=== PATIENT | male | born 1950 | race Caucasian/White ===

== ENCOUNTER 2024-04-28 14:37 | Emergency (ER) | payer OTHER, SELFPAY ==
--- NOTE | ~2024-04-28 | CT_ITS ---
EXAMINATION: CT HEAD WITHOUT CONTRAST CLINICAL INFORMATION: Dizziness. Intermittent headaches. COMPARISON: None available. TECHNIQUE: Contiguous axial imaging was performed from the skull base to vertex without intravenous administration of contrast. This CT examination was performed using dose optimization techniques as appropriate, variously including the following: *Automated exposure control. *Adjustment of mA and/or kV according to patient size (this includes techniques or standardized protocols for targeted exams where dose is matched to indication/reason for exam; i.e. extremities or head). *Use of iterative reconstruction technique. DLP: 594 mGy-cm FINDINGS: There is no evidence of acute intracranial hemorrhage or edematous territorial infarction. [place]-white matter differentiation is preserved. Scattered and partially confluent hypoattenuation in the periventricular and deep white matter are consistent with moderate microangiopathy. Proportional prominence of the ventricles and sulcal spaces without evidence of obstructive hydrocephalus. No abnormal mass effect or midline shift. No extra-axial fluid collections. 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 No hyperdense vessel sign. No acute soft tissue or osseous abnormalities. Mild mucosal thickening of the paranasal sinuses. Moderate leftward nasal septal deviation with spurring. The mastoid air cells and middle ear cavities are clear. 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 CT/CT head/brain wo IV con IMPRESSION: 1. No evidence of acute intracranial hemorrhage or edematous territorial infarction. 2. 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 Electronically signed by: Dhaval Dobbs DO 04/28/2024 05:59 PM EST
--- OUTSIDE RECORDS SUMMARY | 2024-04-28 14:47 | XMS_ITS | Encounter Summary ---
Author Name [facility] [place] Organization [facility] Address [address] [place] [address] Care Team Providers Care Smocking Machine Operator Name Role Phone MARYELLEN GONZALEZ Primary Care Provider Unavailabl e Insurance Providers: All historical and current Section Date Range: From patient's date of to the date document was created. This section includes the names of all active insurance providers for the patient. Insurance Provider Type of Coverage Plan Name Start of Policy Coverage End of Policy Coverage Group Number Member ID Insurance Provider's Telephone Number Policy Gaytan's Name Patient's Relationship to Policy Gaytan IRINEO [facility] Mar 11, 2015 [id number] [phone] JEZ GARCIA PATIENT MEDICARE (WNR) MEDICARE (M) PART A Mar 11, 2015 PART A [id number] JEZ GARCIA PATIENT MEDICARE (WNR) MEDICARE (M) PART B Mar 11, 2015 PART B [id number] JEZ GARCIA PATIENT MEDICARE (WNR) MEDICARE (M) PART A Mar 11, 2015 PART A [id number] [phone] JEZ GARCIA PATIENT MEDICARE (WNR) MEDICARE (M) PART B Mar 11, 2015 PART B [id number] JEZ GARCIA PATIENT Selected Encounter This section includes the information on record at [place] for the Encounter. Date/Time Encounter Type Encounter Description Reason Pro vider Source Aug 20, 2023 03:52 PM Outpatient Encounter PRIMARY CARE/MEDICINE IHE Encounter Template Text not used by [place] Plan of Treatment: Future Appointments (+ 6 months) and Future Tests (+/- 45 days) The Plan of Treatment section includes future care activities for the patient from all [place] treatmentfacilities. This section includes future appointments and future orders which are active, pending or scheduled. Future Appointments This section includes appointments that were scheduled to occur 6 months from the date of the Encounter, up to a maximum of 20 appointments. The data comes from all [place] treatment facilities. Appointment Date/Time Appointment Type Appointme nt Facility Name Aug 28, 2023 01:00 PM AMBULATORY - [facility]ICINE [facility] Lab Results: +/- 30 days of the encounter This section includes the Chemistry and Hematology Lab Results on record with [place] for the patient. Radiology Reports and Pathology Reports are provided separately, in subsequent sections. Lab Results This section contains the Chemistry/Hematology Results that were resulted 30 days before or 30 daysafter the date of the Encounter. Date/Time Source Result Type Result - Unit Interpretation Reference Range Comment Aug 21, 2023 11:18 AM [facility] LIPID PANEL FASTING Specimen Type: SERUM No comment entered. Ordering Provider: KAREN CARD Report Released Date/Time: Aug 10, 2023 01:40 PM Reporting Lab: [address] [address] Performing Lab: [address] [address] CHOLESTEROL 154 mg/dL TRIGLYCERIDE 239 mg/dL H 0-150 LDL calculated 63 mg/dL 0-129 CHOL/HDL 3.6 HDL CHOLESTEROL 43 mg/dL 40-60 Aug 21, 2023 11:18 AM [facility] BASIC METABOLIC PANEL (fasting) Specime n Type: SERUM No comment entered. Ordering Provider: KAREN CARD Report Released Date/Time: Aug 10, 2023 01:40 PM Reporting Lab: [address] [address] Performing Lab: [address] [address] UREA NITROGEN 18 mg/dL 7-25 GLUCOSE 117 mg/dL H 65-100 SODIUM 138 mmol/L 135-145 POTASSIUM 4.3 mmol/L 3.5-5.0 CHLORIDE 103 mmol/L 100-110 CO2 24 meq/L 20-30 CREATININE, Serum 1.04 mg/dL 0.50-1.40 eGFR(CKD-EPI 2020) 75 mL/min >60 Aug 21, 2023 11:18 AM [facility] LIVER FUNCTION Specimen Type: SERUM No comment entered. Ordering Provider: KAREN CARD Report Released Date/Time: Aug 10, 2023 01:40 PM Reporting Lab: [address] [address] Performing Lab: [address] [address] PROTEIN,TOTAL 7.1 g/dL 6.0-8.3 ALBUMIN 4.0 g/dL 3.5-5.0 ALKALINE PHOSPHATASE 49 U/L 40-150 AST 23 U/L 5-34 ALT 24 U/L BILIRUBIN, TOTAL 1.3 mg/dL H 0.2-1.2 BILIRUBIN, DIRECT 0.4 mg/dL 0-0.5 Aug 21, 2023 11:18 AM [facility] HEMOGLOBIN A1C PANEL Specimen Type: BLOOD Comment: Values obtained from A1C measurements can vary. For atypical A1C assays, a reported value of 7.0 could actually be between 6.72 and 7.28 if measured by a reference method. A reported value of 9.0 could actually be between 8.73 and 9.27. Ref: http://www.ngs p.org/CAPdata. asp Ordering Provider: KAREN CARD Report Released Date/Time: Aug 10, 2023 01:40 PM Reporting Lab: [address] [address] Performing Lab: [address] [address] HEMOGLOBIN A1C 6.4 H 4.0-5.6 Aug 21, 2023 11:18 AM [facility] TSH Specimen Type: SERUM No comment entered. Ordering Provider: KAREN CARD Report Released Date/Time: Aug 10, 2023 01:40 PM Reporting Lab: [address] [place] [address] Performing Lab: [address] [address] TSH 1.06 u[IU]/mL 0.35-5.00 Aug 21, 2023 11:18 AM [facility] MICROALBUMIN CREATININE RATIO PANEL Spe cimen Type: URINE No comment entered. Ordering Provider: KAREN CARD Report Released Date/Time: Aug 10, 2023 01:40 PM Reporting Lab: [address] [address] Performing Lab: [address] [address] MICROALBUMIN/C REATININE RATIO 91.7 mg/g H 0-29.9 MICROALBUMIN,Q UANTITATIVE 4.3 mg/dL RR UNAVAIL CREATININE URINE 46.87 mg/dL Aug 21, 2023 11:18 AM [facility] CBC AND DIFF (AUTO) Specimen Type: BLOOD No comment entered. Ordering Provider: KAREN CARD Report Released Date/Time: Aug 10, 2023 01:40 PM Reporting Lab: [address] [address] Performing Lab: [address] [address] WBC 6.37 10*3/uL 4.50-11.00 RBC 4.93 10*6/uL 4.23-5.66 HGB 14.9 g/dL 12.8-17 HCT 44.4 39.2-50.4 MCV 90.1 fL 82-99 MCHC 33.6 g/dL 30.8-35.1 PLT 171 10*3/uL 140-360 RDW-CV 13.2 12.0-16.0 [place], Abs 0.52 10*3/uL 0.30-1.10 MCH 30.2 pg 26.2-32.6 Neut % 48.1 43.7-75.8 Lymph % 19.9 14.0-42.3 [place] % 8.2 5.1-13.7 Eos % 22.6 H 0.4-6.8 Baso % 0.9 0.1-2.0 Neut, Abs 3.06 10*3/uL 2.20-7.60 Lymph, Abs 1.27 10*3/uL 1.00-3.20 Eos, Abs 1.44 10*3/uL H 0.03-0.44 Baso, Abs 0.06 10*3/uL 0.01-0.13 Immature Gran % 0.3 0.0-0.7 Immature Gran, Abs 0.02 10*3/uL 0.00-0.06 Social History: Smoking Status (Most current) and Tobacco Use (All prior to encounter date) This section includes the most current, and the historical, smoking and tobacco- related health factors from the [place] facility where the Encounter took place. Current Smoking Status This section includes the most current smoking, or tobacco-related health factor, from the [place] facility where the Encounter took place. Date/Time Current Smoking Status Comment Facil ityulisa Oct 30, 2020 10:49 AM [place]-TOBACCO NEVER USED [place] [facility] Encounter Notes: All associated encounter notes This section contains the clinical notes associated to the Encounter. Date/Time Encounter Note(s) Provider Source Aug 20, 2023 03:52 PM ADMINISTRATIVE NOT E: LOCAL TITLE: ADMINISTRATIVE NOTE STANDARD TITLE: ADMINISTRATIVE NOTE DATE OF NOTE: AUG 20, 2023@15:52 ENTRY DATE: AUG 20, 2023@15:52:49 AUTHOR: SCOTT ZABALA COSIGNER: URGENCY: STATUS: COMPLETED THIS PREPRESS TECHNICIAN HAD CALLED TO REMIND OF F2F ANNUAL APPT. WITH CWM/SO/PACT EIGHT PROVIDER ON 08/28/2023 AT 13:00, ALSO REMINDED TO COMPLETE FASTING LABS. NO ANSWER, LEFT MESSAGE FOR . /ct/ KENNETH ZABALA ADVANCED VIDEO CONFERENCE SPECIALIST Signed: 08/20/2023 15:54 KENNETH ZABALA [facility]
--- OUTSIDE RECORDS SUMMARY | 2024-04-28 14:47 | XMS_ITS | Encounter Summary ---
Author Name [facility] [place] Organization [facility] of [facility] [place]) Address [address] [place] [address] Care Team Providers Care Recreational Specialist Name Role Phone MARYELLEN GONZALEZ Primary Care [...] Name Patient's Relationship to Policy Gaytan [facility]INEO [facility] Mar 11, 2015 [id number] JEZ GARCIA PATIENT MEDICARE (WNR) MEDICARE (M) PART A Mar 11, 2015 PART A [id number] [phone] JEZ GARCIA PATIENT MEDICARE (WNR) MEDICARE (M) PART B Mar 11, 2015 PART B [id number] JEZ GARCIA PATIENT MEDICARE (WNR) MEDICARE (M) PART A Mar 11, 2015 PART A [id number] JEZ GARCIA PATIENT MEDICARE (WNR) MEDICARE (M) PART B Mar 11, 2015 PART B [id number] [phone] JEZ GARCIA PATIENT Selected Encounter This section includes the information on record at [place] for the Encounter. Date/Time Encounter Type Encounter Description Reason Pro vider Source Nov 20, 2023 07:06 AM Outpatient Encounter PRIMARY CARE/MEDICINE IHE Encounter Template Text not used by [place] Plan of Treatment: Future Appointments (+ 6 months) and Future Tests (+/- 45 days) The Plan of Treatment section includes future care activities for the patient from all [place] treatmentfacilities. This section includes future appointments and future orders which are active, pending or scheduled. Future Appointments This section includes appointments that were scheduled to occur 6 months from the date of the Encounter, up to a maximum of 20 appointments. The data comes from all [place] treatment facilities. Appointment Date/Time Appointment Type Appointme nt Facility Name Feb 24, 2024 09:30 AM AMBULATORY - MEDICINE [facility] Social History: Smoking Status (Most current) and Tobacco Use (All prior to encounter date) This section includes the most current, and the historical, smoking and tobacco- related health factors from the [place] facility where the Encounter took place. Current Smoking Status This section includes the most current smoking, or tobacco-related health factor, from the [place] facility where the Encounter took place. Date/Time Current Smoking Status Comment Facil ity Oct 30, 2020 10:49 AM [place]-TOBACCO NEVER USED [place] [facility] [place] [facility] Encounter Notes: All associated encounter notes This section contains the clinical notes associated to the Encounter. Date/Time Encounter Note(s) Provider Source Nov 20, 2023 07:06 AM PRIMARY CARE INFOGRAPHIQS MESSAGING: LOCAL TITLE: PRIMARY CARE SECURE MESSAGING STANDARD TITLE: PRIMARY CARE SECURE MESSAGING DATE OF NOTE: NOV 20, 2023@07:06 ENTRY DATE: NOV 20, 2023@08:07 AUTHOR: SCOTT ZABALA COSIGNER: URGENCY: STATUS: COMPLETED ------Original Message -------- Sent: 11/19/2023 07:56 PM ET From: RC GARCIA To: Luis Daniel CARD,_PRIMARYCARE_[facility] Subject: Medication:Omeprazole I have eleven days of omeprazole 20mg left. There are no additional refills left. Please let me know if you want me to stop taking the medication or send a request for a refill. Thank you /ct/ KENNETH ZABALA ADVANCED GRANTS AND CONTRACTS ASSISTANT Signed: 11/20/2023 08:07 Receipt Acknowledged By: 11/20/2023 15:41 /es/ JAZMYNE GERARDN RN- REGISTERED NURSE 11/24/2023 16:31 /ct/ KAREN CARD MD PRIMARY CARE PHYSICIAN SCOTT ZABALA [facility]
--- OUTSIDE RECORDS SUMMARY | 2024-04-28 14:47 | XMS_ITS | Encounter Summary ---
Author Name [facility] [place] Organization [facility] [place] Address [address] [place] [address] Care Team Providers Care Training Professional Name Role Phone MARYELLEN GONZALEZ Primary Care [...] Name Patient's Relationship to Policy Gaytan [facility]O [facility] Mar 11, 2015 [id number] [phone] JEZ GARCIA PATIENT MEDICARE (WNR) MEDICARE (M) PART A Mar 11, 2015 PART A [id number] [phone] JEZ GARCIA PATIENT MEDICARE (WNR) MEDICARE (M) PART B Mar 11, 2015 PART B [id number] JEZ GARCIA PATIENT MEDICARE (WNR) MEDICARE (M) PART A Mar 11, 2015 PART A [id number] [id number] [phone] JEZ GARCIA PATIENT MEDICARE (WNR) MEDICARE (M) PART B Mar 11, 2015 PART B [id number] [phone] JEZ GARCIA PATIENT Selected Encounter This section includes the information on record at [place] for the Encounter. Date/Time Encounter Type Encounter Description Reason Pro vider Source Feb 08, 2024 03:14 PM Outpatient Encounter OPTOMETRY IHE Encounter Template Text not used by [facility] Plan of Treatment: Future Appointments (+ 6 months) and Future Tests (+/- 45 days) The Plan of Treatment section includes future care activities for the patient from all [place] treatmentfacilities. This section includes future appointments and future orders which are active, pending or scheduled. Future Appointments This section includes appointments that were scheduled to occur 6 months from the date of the Encounter, up to a maximum of 20 appointments. The data comes from all [place] treatment facilities. Appointment Date/Time Appointment Type Appointme nt Facility Name Feb 24, 2024 09:30 AM AMBULATORY - MEDICINE [facility] Lab Results: +/- 30 days of the encounter This section includes the Chemistry and Hematology Lab Results on record with [place] for the patient. Radiology Reports and Pathology Reports are provided separately, in subsequent sections. Lab Results This section contains the Chemistry/Hematology Results that were resulted 30 days before or 30 daysafter the date of the Encounter. Date/Time Source Result Type Result - Unit Interpretation Reference Range Comment Feb 16, 2024 10:52 AM [facility] LIPID PANEL FASTING Specimen Type: SERUM No comment entered. Ordering Provider: KAREN CARD Report Released Date/Time: Feb 12, 2024 04:13 PM Reporting Lab: [address] [address] Performing Lab: [address] [address] CHOLESTEROL 183 mg/dL TRIGLYCERIDE 269 mg/dL H 0-150 LDL calculated 83 mg/dL 0-129 CHOL/HDL 4.0 HDL CHOLESTEROL 46 mg/dL 40-60 Feb 16, 2024 10:52 AM [facility] BASIC METABOLIC PANEL (fasting) Specime n Type: SERUM No comment entered. Ordering Provider: KAREN CARD Report Released Date/Time: Feb 12, 2024 04:13 PM Reporting Lab: [address] [address] Performing Lab: [address] [address] UREA NITROGEN 22 mg/dL 7-25 GLUCOSE 110 mg/dL H 65-100 SODIUM 135 mmol/L 135-145 POTASSIUM 4.5 mmol/L 3.5-5.0 CHLORIDE 102 mmol/L 100-110 CO2 24 meq/L 20-30 CREATININE, Serum 1.06 mg/dL 0.50-1.40 eGFR(CKD-EPI 2020) 74 mL/min >60 Feb 16, 2024 10:52 AM [facility] LIVER FUNCTION Specimen Type: SERUM No comment entered. Ordering Provider: KAREN CARD Report Released Date/Time: Feb 12, 2024 04:13 PM Reporting Lab: [facility] [address] [facility] [address] Performing Lab: [address] [address] PROTEIN,TOTAL 7.1 g/dL 6.0-8.3 ALBUMIN 4.0 g/dL 3.5-5.0 ALKALINE PHOSPHATASE 39 U/L L 40-150 AST 24 U/L 5-34 ALT 23 U/L BILIRUBIN, TOTAL 1.4 mg/dL H 0.2-1.2 BILIRUBIN, DIRECT 0.4 mg/dL 0-0.5 Feb 16, 2024 10:52 AM [facility] HEMOGLOBIN A1C PANEL Specimen Type: BLOOD Comment: Values obtained from A1C measurements can vary. For atypical A1C assays, a reported value of 7.0 could actually be between 6.72 and 7.28 if measured by a reference method. A reported value of 9.0 could actually be between 8.73 and 9.27. Ref: http://www.ngs p.org/CAPdata. asp Ordering Provider: KAREN CARD Report Released Date/Time: Feb 12, 2024 04:13 PM Reporting Lab: [facility] [address] [facility] [address] Performing Lab: [address] [address] HEMOGLOBIN A1C 6.2 H 4.0-5.6 Feb 16, 2024 10:52 AM [facility] TSH Specimen Type: SERUM No comment entered. Ordering Provider: KAREN CARD Report Released Date/Time: Feb 12, 2024 04:13 PM Reporting Lab: [address] [address] [facility] [address] [address] TSH 1.05 u[IU]/mL 0.35-5.00 Feb 16, 2024 10:52 AM [facility] MICROALBUMIN CREATININE RATIO PANEL Spe cimen Type: URINE No comment entered. Ordering Provider: KAREN CARD Report Released Date/Time: Feb 12, 2024 04:13 PM Reporting [facility] [address] [address] Performing Lab: [address] [address] MICROALBUMIN/C REATININE RATIO 49.2 mg/g H 0-29.9 MICROALBUMIN,Q UANTITATIVE 2.7 mg/dL RR UNAVAIL CREATININE URINE 54.91 mg/dL Feb 16, 2024 10:52 AM [facility] CBC AND DIFF (AUTO) Specimen Type: BLOOD No comment entered. Ordering Provider: KAREN CARD Report Released Date/Time: Feb 12, 2024 04:13 PM Reporting Lab: [address] [address] Performing Lab: [address] [address] WBC 4.58 10*3/uL 4.50-11.00 RBC 4.78 10*6/uL 4.23-5.66 HGB 14.6 g/dL 12.8-17 HCT 42.6 39.2-50.4 MCV 89.1 fL 82-99 MCHC 34.3 g/dL 30.8-35.1 PLT 159 10*3/uL 140-360 RDW-CV 13.1 12.0-16.0 MONO, ABS 0.53 10*3/uL 0.30-1.10 MCH 30.5 pg 26.2-32.6 NEUT % 54.6 43.7-75.8 LYMPH % 23.8 14.0-42.3 MONO % 11.6 5.1-13.7 EOS % 8.7 H 0.4-6.8 BASO % 1.1 0.1-2.0 NEUT, ABS 2.50 10*3/uL 2.20-7.60 LYMPH, ABS 1.09 10*3/uL 1.00-3.20 EOS, ABS 0.40 10*3/uL 0.03-0.44 BASO, ABS 0.05 10*3/uL 0.01-0.13 IMMATURE GRAN % 0.2 0.0-0.7 IMMATURE GRAN, ABS 0.01 10*3/uL 0.00-0.06 NRBC % 0.0 0.0-0.0 NRBC, ABS 0.00 10*3/uL 0.00-0.00 Social History: Smoking Status (Most current) and Tobacco Use (All prior to encounter date) This section includes the most current, and the historical, smoking and tobacco- related health factors from the [place] facility where the Encounter took place. Current Smoking Status This section includes the most current smoking, or tobacco-related health factor, from the [place] facility where the Encounter took place. Date/Time Current Smoking Status Comment Facil ayesha Oct 30, 2020 10:49 AM [place]-TOBACCO NEVER USED [facility] Encounter Notes: All associated encounter notes This section contains the clinical notes associated to the Encounter. Date/Time Encounter Note(s) Provider Source Feb 08, 2024 03:15 PM ADMINISTRATIVE NOTE: LOCAL TITLE: ADMINISTRATIVE RECALL NOTE STANDARD TITLE: ADMINISTRATIVE NOTE DATE OF NOTE: FEB 08, 2024@15:15 ENTRY DATE: FEB 08, 2024@15:15:07 AUTHOR: OVIDIO BRITT SA COSIGNER: URGENCY: STATUS: COMPLETED RTC orders: Unable to contact patient: Attempts to contact: 1st attempt: Left voicemail 2nd attempt: Letter mailed 3rd attempt: 4th attempt: 1ST CONTACT ATTEMPT: Called, LM on to reschedule appointment. Mailed letter. Patients appointment with Optometry on 02/09/2024 at 2:30pm, needs to be rescheduled with a PID of [id number]/2024. [facility] will make a second contact attempt on 02/23/2024. [phone] Ext: [phone] /ct/ OVIDIO BRITT Signed: 02/08/2024 15:16 OVIDIO BRITT [facility]
--- OUTSIDE RECORDS SUMMARY | 2024-04-28 14:47 | XMS_ITS | Encounter Summary ---
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 Name Role Phone CARLOS MARYELLEN Primary Care Provider Unavailabl e Insurance Providers: [...] Name Patient's Relationship to Policy Gaytan IRINEO [facility] MEDICARE SUPPLEMEN PRABHJOT Mar 11, 2015 [id number] [phone] JEZ GARCIA PATIENT MEDICARE (WNR) MEDICARE (M) PART A Mar 11, 2015 PART A [id number] [phone] JEZ GARCIA PATIENT MEDICARE (WNR) MEDICARE (M) PART B Mar 11, 2015 PART B [id number] [phone] JEZ GARCIA PATIENT MEDICARE (WNR) MEDICARE (M) PART A Mar 11, 2015 PART A [id number] JEZ GARCIA PATIENT MEDICARE (WNR) MEDICARE (M) PART B Mar 11, 2015 PART B [id number] JEZ GARCIA PATIENT Selected Encounter This section includes the information on record at [place] for the Encounter. Date/Time Encounter Type Encounter Description Reason Provider Source Aug 28, 2023 01:00 PM OFFICE O/P EST MOD 30 MIN PRIMARY CARE/MEDICINE ICD-10-CM E78.5 Hyperlipidemia, unspecified JESSY CARDSUKI Neumann Alo Encounter Template Text not used by [place] Assessments - Encounter Diagnoses This section includes the primary and secondary diagnoses documented for the Encounter. Date/Time Primary/Secondary Diagnosis Diagnosis Name Provider Source Aug 28, 2023 01:37 PM PRIMARY Hyperlipidemia, unspecified ELYSEKAREN PARSONS [facility] Aug 28, 2023 01:37 PM SECONDARY Essential (primary) hypertension KAREN CARD [facility] Aug 28, 2023 01:37 PM SECONDARY Migraine, unsp, not intractable, without status migrainosus KAREN CARD [place] Aug 28, 2023 01:37 PM SECONDARY Type 2 diabetes mellitus without complications KAREN CARD [place] Plan of Treatment: Future Appointments (+ 6 months) and Future Tests (+/- 45 days) The Plan of Treatment section includes future care activities for the patient from all [place] [facility]. This section includes future appointments and future orders which are active, pending or scheduled. Future Appointments This section includes appointments that were scheduled to occur 6 months from the date of the Encounter, up to a maximum of 20 appointments. The data comes from all [place] treatment facilities. Appointment Date/Time Appointment Type Appointme nt Facility Name Feb 24, 2024 09:30 AM AMBULATORY - MEDICINE [facility] Lab Results: +/- 30 days of the encounter This section includes the Chemistry and Hematology Lab Results on record with [place] for the patient. Radiology Reports and Pathology Reports are provided separately, in subsequent sections. Lab Results This section contains the Chemistry/Hematology Results that were resulted 30 days before or 30 daysafter the date of the Encounter. Date/Time Source Result Type Result - Unit Interpretation Reference Range Comment Aug 21, 2023 11:18 AM [facility] LIPID PANEL FASTING Specimen Type: SERUM No comment entered. Ordering Provider: KAREN CARD Report Released Date/Time: Aug 10, 2023 01:40 PM Reporting Lab: [address] [address] Performing Lab: [address] [address] CHOLESTEROL 154 mg/dL TRIGLYCERIDE 239 mg/dL H 0-150 LDL calculated 63 mg/dL 0-129 CHOL/HDL 3.6 HDL CHOLESTEROL 43 mg/dL 40-60 Aug 21, 2023 11:18 AM [facility] BASIC METABOLIC PANEL (fasting) Specime n Type: SERUM No comment entered. Ordering Provider: KAREN CARD Report Released Date/Time: Aug 10, 2023 01:40 PM Reporting Lab: [address] [address] Performing Lab: [address] [address] UREA NITROGEN 18 mg/dL 7-25 GLUCOSE 117 mg/dL H 65-100 SODIUM 138 mmol/L 135-145 POTASSIUM 4.3 mmol/L 3.5-5.0 CHLORIDE 103 mmol/L 100-110 CO2 24 meq/L 20-30 CREATININE, Serum 1.04 mg/dL 0.50-1.40 eGFR(CKD-EPI 2020) 75 mL/min >60 Aug 21, 2023 11:18 AM [facility] LIVER FUNCTION Specimen Type: SERUM No comment entered. Ordering Provider: KAREN CARD Report Released Date/Time: Aug 10, 2023 01:40 PM Reporting Lab: [address] [address] Performing Lab: [address] [address] PROTEIN,TOTAL 7.1 g/dL 6.0-8.3 ALBUMIN 4.0 g/dL 3.5-5.0 ALKALINE PHOSPHATASE 49 U/L 40-150 AST 23 U/L 5-34 ALT 24 U/L BILIRUBIN, TOTAL 1.3 mg/dL H 0.2-1.2 BILIRUBIN, DIRECT 0.4 mg/dL 0-0.5 Aug 21, 2023 11:18 AM [facility] HEMOGLOBIN A1C PANEL Specimen Type: BLOOD Comment: [...] Aug 10, 2023 01:40 PM Reporting [facility]: [facility] [address] [address] Performing Lab: [facility] [address] [address] HEMOGLOBIN A1C 6.4 H 4.0-5.6 Aug 21, 2023 11:18 AM [facility] TSH Specimen Type: SERUM No comment entered. Ordering Provider: KAREN CARD Report Released Date/Time: Aug 10, 2023 01:40 PM Reporting Lab: [facility] [address] [address] Performing Lab: [facility] [address] [address] TSH 1.06 u[IU]/mL 0.35-5.00 Aug 21, 2023 11:18 AM [facility] MICROALBUMIN CREATININE RATIO PANEL Spe cimen Type: URINE No comment entered. Ordering Provider: KAREN CARD Report Released Date/Time: Aug 10, 2023 01:40 PM Reporting Lab: [facility] [address] [address] Performing Lab: [facility] [address] [address] MICROALBUMIN/C REATININE RATIO 91.7 mg/g H 0-29.9 MICROALBUMIN,Q UANTITATIVE 4.3 mg/dL RR UNAVAIL CREATININE URINE 46.87 mg/dL Aug 21, 2023 11:18 AM [facility] CBC AND DIFF (AUTO) Specimen Type: BLOOD No comment entered. Ordering Provider: KAREN CARD Report Released Date/Time: Aug 10, 2023 01:40 PM Reporting Lab: [facility] [address] [address] Performing Lab: [facility] [address] [address] WBC 6.37 10*3/uL 4.50-11.00 RBC 4.93 10*6/uL 4.23-5.66 HGB 14.9 g/dL 12.8-17 HCT 44.4 39.2-50.4 MCV 90.1 fL 82-99 MCHC 33.6 g/dL 30.8-35.1 PLT 171 10*3/uL 140-360 RDW-CV 13.2 12.0-16.0 Stark, Abs 0.52 10*3/uL 0.30-1.10 MCH 30.2 pg 26.2-32.6 Neut % 48.1 43.7-75.8 Lymph % 19.9 14.0-42.3 Stark % 8.2 5.1-13.7 Eos % 22.6 H 0.4-6.8 Baso % 0.9 0.1-2.0 Neut, Abs 3.06 10*3/uL 2.20-7.60 Lymph, Abs 1.27 10*3/uL 1.00-3.20 Eos, Abs 1.44 10*3/uL H 0.03-0.44 Baso, Abs 0.06 10*3/uL 0.01-0.13 Immature Gran % 0.3 0.0-0.7 Immature Gran, Abs 0.02 10*3/uL 0.00-0.06 Vital Signs: All taken on the encounter date This section contains inpatient and outpatient Vital Signs collected on the date of the Encounter. Date/Time Temperature Pulse Blood Pressure Respiratory Rate SP02 Pain Height Weight Body Mass Index Source Aug 28, 2023 01:34 PM 137/85 [place] Aug 28, 2023 01:09 PM 61 150/87 97 [facility] Social History: Smoking Status (Most current) and Tobacco Use (All prior to encounter date) This section includes the most current, and the historical, smoking and tobacco- related health factors from the [place] facility where the Encounter took place. Current Smoking Status This section includes the most current smoking, or tobacco-related health factor, from the [place] facility where the Encounter took place. Date/Time Current Smoking Status Comment Jose J ity Feb 25, 2023 09:00 AM [place]-TOBACCO NEVER USED [facility] Tobacco Use History This section includes a history of the smoking, or tobacco-related health factors, that were collected on or before the date of the Encounter. The data comes from the [place] facility where the Encounter took place. Date/Time Smoking Status/Tobacco Use Comment F acnakul Feb 25, 2022 10:00 AM [facility]-TOBACCO NEVER USED [facility] Jan 28, 2018 12:04 PM VA-TOBACCO NEVER USED [facility] September 14, 2017 09:02 AM LIFETIME NON-TOBACCO USER [facility] May 07, 2016 09:00 AM LIFETIME NON-TOBACCO USER [facility] Apr 04, 2015 02:05 PM QUIT TOBACCO USE > 7 YEARS AGO [facility] Jan 03, 2011 09:03 AM LIFETIME NON-TOBACCO USER [facility] Encounter Notes: All associated encounter notes This section contains the clinical notes associated to the Encounter. Date/Time Encounter Note(s) Provider Source Aug 28, 2023 01:16 PM PHYSICIAN NOTE: LOCAL TITLE: MD NOTE STANDARD TITLE: PHYSICIAN NOTE DATE OF NOTE: AUG 28, 2023@13:16 ENTRY DATE: AUG 28, 2023@13:16:12 AUTHOR: KAREN CARD COSIGNER: URGENCY: STATUS: COMPLETED HISTORY OF PRESENT ILLNESS: RC Sheryl GARCIA, is a 73 yo MALE [place], who presents at the [facility] for follow up visit for chronic medical conditions. labs- recenthly done and results were d/w Twist and Shout today Active problems - Computerized Problem List is the source for the followin-essential hypertension 2-hyperlipidemia 3-diabetes mellitus type 2 4-migraines The following VA and Non-VA meds were reconciled with patient: Active Outpatient Medications (including Supplies): Issue Date Status Last Fill Active Outpatient Medications Refills Expiration ========= 1) AMLODIPINE BESYLATE 2.5MG TAB Qty: 90 ACTIVE Issu:03-30-23 for 90 days Sig: TAKE ONE TABLET BY Refills: 2 Last:06-26-23 MOUTH ONCE DAILY FOR BLOOD Expr:03-30-24 PRESSURE/HEART, DO NOT TAKE WITH GRAPEFRUIT JUICE 2) LOSARTAN 100MG TAB Qty: 90 for 90 days ACTIVE Issu:04-02-23 Sig: TAKE ONE TABLET BY MOUTH ONCE Refills: 2 Last:06-26-23 DAILY FOR BLOOD PRESSURE/HEART - THIS Expr:04-02-24 REPLACES LISINOPRIL 3) OMEPRAZOLE 20MG EC CAP Qty: 90 for 90 ACTIVE Issu:10-09-22 days Sig: TAKE ONE CAPSULE BY MOUTH Refills: 0 Last:07-09-23 DAILY Expr:10-10-23 4) ROSUVASTATIN CA 40MG TAB Qty: 45 for 90 ACTIVE Issu:03-04-23 days Sig: TAKE ONE-HALF TABLET BY Refills: 2 Last:06-11-23 MOUTH AT BEDTIME FOR CHOLESTEROL - Expr:03-04-24 THIS REPLACES ATORVASTATIN Start Date Active Non-VA Medications Refills Expiration ========= 1) Non-VA CHOLECALCIF 25MCG (D3-1,000UNIT) ACTIVE TAB SiMCG BY MOUTH ONCE DAILY 5 Total Medications ALLERGIES: ========= Patient has answered NKA LAB HISTORY: Glucose levels 117 with hemoglobin A1c 6.4 LFTs, TSH, CBC normal Triglycerides 239 Microalbumin 91 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 - [employer] 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 Apr COMBAT SERVICE INDICATED: No REVIEW OF SYSTEMS: No fever, chills, fatigue No chest pain shortness of breath or palpitations No cough or wheezing No abdominal pain nausea or vomiting No dysuria No joints pain No dizziness; sometimes headaches; PHYSICAL EXAMINATION: WD/WN seems to be in nonacute distress at the moment of examination S1-S2 positive, RRR PARISH, CTA bilateral Abdomen soft nontender to palpation No edema lower extremities AAO x3; ambulates without help ASSESSMENT/PLAN: 1-essential hypertension- mild elevated BP in office; blood work is 137/85 -Advised to keep low salt and caffeine intake and exercise at least 150 minutes moderate activity weekly He admits of not exercising over the winter He states he watches his diet 2-hyperlipidemia -with hypertriglyceridemia Advised to continue statins and fish oil 1000 mg twice a day I advised to decrease carbohydrates in diet and exercise as tolerated 3-diabetes mellitus type 2 continue metformin Advised to watch his diet for carbohydrates and increase exercising to 150 minutes moderate activity weekly He states does not monitor his glucose level at home 4-migraines- continue propranolol daily and sumatriptan as needed FOLLOW UP: ========= RTC -6 month follow up- for htn, hlp, dm, migraines Today's documentation was made using voice recognition software. This note may contain spelling/grammatical errors secondary to this software. Every effort is made to correct errors, but if mistakes are found they need to be taken in context. UPCOMING APPOINTMENTS: 02/09/2024 14:30 NHM/OPTOMETRY/LAMAS/ No barriers; Patient understands and agrees to current treatment plan. If pt has any questions, concerns, or changes in current health status he/she will call or come in to the VA. Medication Reconciliation: Outpatient: Has the patient been taking medications as documented in the EMLR? YES: The patient has been taking medications as documented in the EMLR. Essential Medication List for Review used to complete this medication reconciliation. INCLUDED IN THIS LIST: Alphabetical list of active outpatient prescriptions dispensed from this VA (local) and dispensed from another VA or DoD facility (remote) as well as inpatient orders (local, pending and active), local clinic medications, locally documented non-VA medications, and local prescriptions that have or been discontinued in the past 90 days. - All changes in medications, including all non-VA/Herbal/OTC medications were entered into CPRS. - If there were any medications the patient should no longer take, they were discontinued. - The patient/caregiver was instructed to update this list, discard old lists, and take this list to the next appointment, whether with a VA or non-VA provider. WILLARD Link Data on this list may not be complete. Please check JLV. Allergies/ADRs (Tool #5) FACILITY ALLERGY/ADR -------- No Remote Allergy/ADR Data available for this patient [place] [facility] No Known Allergies Med [facility] Lori (Tool #1) INCLUDED IN THIS LIST: Alphabetical list of active outpatient prescriptions dispensed from this [place] (local) and dispensed from another [place] or [facility] facility (remote) as well as inpatient orders (local pending and active), local clinic medications, locally documented non-VA medications, and local prescriptions that have or been discontinued in the past 90 days. Non-VA Meds Last Documented On: Dec 31, 2022 NOTE The display of VA prescriptions dispensed from another VA or DoD facility (remote) is limited to active outpatient prescription entries matched to National Drug File at the originating site and may not include some items such as investigational drugs, compounds, etc. NOT INCLUDED IN THIS LIST: Medications self-entered by the patient into personal health records (i.e. [employer]) are NOT included in this list. Non-VA medications documented outside this [place], remote inpatient orders (regardless of status) and remote clinic medications are NOT included in this list. The patient and provider must always discuss medications the patient is taking, regardless of where the medication was dispensed or obtained. -------- OUTPT AMLODIPINE BESYLATE 2.5MG TAB (Status = Active) TAKE ONE TABLET BY MOUTH ONCE DAILY FOR BLOOD PRESSURE/HEART, DO NOT TAKE WITH GRAPEFRUIT JUICE Rx# [id number] Last Released: 06/27/23 Qty/Days Supply: Rx Expiration Date: 03/30/24 Refills Remainin Indication: FOR HIGH BLOOD PRESSURE Non-VA CHOLECALCIF 25MCG (D3-1,000UNIT) TAB TAKE ONE TABLET BY MOUTH ONCE DAILY Patient wants to buy from Non-VA pharmacy. Indication: FOR VITAMIN D DEFICIENCY OUTPT LOSARTAN 100MG TAB (Status = Active) TAKE ONE TABLET BY MOUTH ONCE DAILY FOR BLOOD PRESSURE/HEART - THIS REPLACES LISINOPRIL Rx# [id number] Last Released: 07/01/23 Qty/Days Supply: Rx Expiration Date: 04/02/24 Refills Remainin Indication: FOR HIGH BLOOD PRESSURE OUTPT METFORMIN HCL 500MG TAB (Status = ) TAKE ONE TABLET BY MOUTH AT BEDTIME FOR DIABETES Rx# [id number] Last Released: 06/27/23 Qty/Days Supply: Rx Expiration Date: 08/27/23 Refills Remainin OUTPT OMEPRAZOLE 20MG EC CAP (Status = Active) TAKE ONE CAPSULE BY MOUTH DAILY Rx# [id number] Last Released: 07/01/23 Qty/Days Supply: Rx Expiration Date: 10/10/23 Refills Remainin OUTPT PROPRANOLOL HCL 120MG SA CAP (Status = ) TAKE ONE CAPSULE BY MOUTH TWICE DAILY Rx# [id number] Last Released: 06/27/23 Qty/Days Supply: 180/ Rx Expiration Date: 08/27/23 Refills Remainin OUTPT ROSUVASTATIN CA 40MG TAB (Status = Active) TAKE ONE-HALF TABLET BY MOUTH AT BEDTIME FOR CHOLESTEROL - THIS REPLACES ATORVASTATIN Rx# [id number] Last Released: 06/11/23 Qty/Days Supply: Rx Expiration Date: 03/04/24 Refills Remainin Indication: FOR HIGH CHOLESTEROL OUTPT SUMATRIPTAN SUCCINATE 25MG TAB (Status = ) TAKE ONE TABLET BY MOUTH DIRECTED AT ONSET OF HEADACHE; MAY REPEAT IN 2 HOURS IF FIRST DOSE IS NOT EFFECTIVE Rx# [id number] Last Released: 06/06/23 Qty/Days Supply: 02/07 Rx Expiration Date: 08/27/23 Refills Remainin -------- SUPPLIES -------- HTN Assess for Elevated BP>=140/90: Other Reason: repeated BP 137/85 /es/ KAREN CARD MD PRIMARY CARE PHYSICIAN Signed: 08/28/2023 13:38 KAREN CARD [facility] Aug 28, 2023 01:10 PM PREVENTIVE MEDICIN E NURSING NOTE: LOCAL TITLE: CLINICAL REMINDERS/NURSING STANDARD TITLE: PREVENTIVE MEDICINE NURSING NOTE DATE OF NOTE: AUG 28, 2023@13:10 ENTRY DATE: AUG 28, 2023@13:10:31 AUTHOR: JASPREET COX COSIGNER: URGENCY: STATUS: COMPLETED RHS Screen: RHS Screen Session Format: Face to Face Environmental Check Upon inquiry, the individual reports that the environment is safe to proceed. Informed Consent to Screen and Document The individual consents to proceed with screening. The individual consents to documentation of responses. PRIMARY SCREEN: In the past 12 months, how often did a current or former intimate partner (e.g., boyfriend, girlfriend, , , sexual partner): 1. Scream or curse at you Never 2. Insult or talk down to you Never 3. Threaten you with harm Never 4. Physically hurt you Never 5. Force or pressure you to have sexual contact against your will, or when you were unable to say no Never ?? The HITS tool (items 1-4 above) is [place] copyright protected by Bob Holt MD, and the user has full rights to use it throughout the [place] system. PRIMARY SCREEN RESULT: The Primary Screen is NEGATIVE. The individual answered never to all forms of IPV above (i.e., answered never to all 5 items) The individual accepts education and/or resources: No EDUCATION: The individual indicated readiness to learn. Education offered during this session as noted above. The individual indicated understanding by asking relevant questions and making appropriate comments. No barriers to learning were observed or identified. PAVE Foot Check: A complete foot check was completed at this encounter. VISUAL INSPECTION: Includes inspection for skin breaks, deformity, erythema, trauma, pallor on elevation, dependent rubor, nail deformities, extensive callus and pitting edema. Visual exam results: Normal PEDAL PULSES: Includes palpation of dorsalis and posterior tibial pulses and signs/symptoms of vascular compromise like pain, pallor, parasthesia or paralysis. Present (even if diminished) SENSORY CHECK: Includes 10 gram Monofilament ([place]-Za[place]) test of sensation. Intact (Greater than or equal to 80% of sites checked) Abnormal (Less than 80% of sites checked): Intact LOW-RISK: LOW RISK INFORMATION PROVIDED: 1. Advised patient not to walk barefoot. 2. Explained the importance of daily foot checks for changes. 3. Stressed the importance of daily foot hygiene, including bathing and complete drying. The patient verbalized understanding and was offered a detailed handout on diabetic foot care. /ct/ JASPREET COX LPN Licensed Practical Nurse Signed: 08/28/2023 13:11 JASPREET COX [place]
--- OUTSIDE RECORDS SUMMARY | 2024-04-28 14:47 | XMS_ITS | Encounter Summary ---
Author Name [facility] [place] [facility] [place] 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 Helper Name Role Phone MARYELLEN GONZALEZ Primary Care [...] Name Patient's Relationship to Policy Gaytan IRINEO [facility] Mar 11, 2015 [id number] JEZ GARCIA PATIENT MEDICARE (WNR) MEDICARE (M) PART A Mar 11, 2015 PART A [id number] [phone] JEZ GARCIA PATIENT MEDICARE (WNR) MEDICARE (M) PART B Mar 11, 2015 PART B [id number] [phone] JEZ GARCIA PATIENT MEDICARE (WNR) MEDICARE (M) PART A Mar 11, 2015 PART A [id number] [phone] JEZ GARCIA PATIENT MEDICARE (WNR) MEDICARE (M) PART B Mar 11, 2015 PART B [id number] [phone] JEZ GARCIA PATIENT Selected Encounter This section includes the information on record at [place] for the Encounter. Date/Time Encounter Type Encounter Description Reason Pro vider Source Oct 15, 2023 07:10 AM Outpatient Encounter PRIMARY CARE/MEDICINE IHE Encounter Template Text not used by [place] Plan of Treatment: Future Appointments (+ 6 months) and Future Tests (+/- 45 days) The Plan of Treatment section includes future care activities for the patient from all [place] treatmentfacilities. This section includes future appointments and future orders which are active, pending or scheduled. Future Appointments This section includes appointments that were scheduled to occur 6 months from the date of the Encounter, up to a maximum of 20 appointments. The data comes from all [place] treatment facilities. Appointment Date/Time Appointment Type Appointme nt Facility Name Feb 24, 2024 09:30 AM AMBULATORY - MEDICINE [facility] Social History: Smoking Status (Most current) and Tobacco Use (All prior to encounter date) This section includes the most current, and the historical, smoking and tobacco- related health factors from the [place] facility where the Encounter took place. Current Smoking Status This section includes the most current smoking, or tobacco-related health factor, from the [place] facility where the Encounter took place. Date/Time Current Smoking Status Comment Jose J hodge Oct 30, 2020 10:49 AM [place]-TOBACCO NEVER USED [place] [facility] [place] [facility] Encounter Notes: All associated encounter notes This section contains the clinical notes associated to the Encounter. Date/Time Encounter Note(s) Provider Source Oct 15, 2023 07:10 AM PRIMARY CARE Kaboodle E MESSAGING: LOCAL TITLE: PRIMARY CARE SECURE MESSAGING STANDARD TITLE: PRIMARY CARE SECURE MESSAGING DATE OF NOTE: OCT 15, 2023@07:10 ENTRY DATE: OCT 15, 2023@08:10:08 AUTHOR: SCOTT ZABALA COSIGNER: URGENCY: STATUS: COMPLETED ------Original Message -------- Sent: 10/14/2023 08:43 PM ET From: RC GARCIA To: Luis Daniel CARD,_PRIMARYCARE_SPOPC Subject: Medication:PROPRANOLOL 120 MG Propranolol has and I currently have fourteen capsule left. /ct/ KENNETH ZABALA ADVANCED MATLAB DEVELOPER Signed: 10/15/2023 08:10 Receipt Acknowledged By: 10/15/2023 09:03 /es/ CARLIE HALE, RN REGISTERED NURSE for AMOR REYES 10/22/2023 11:36 /es/ KAREN CARD MD PRIMARY CARE PHYSICIAN SCOTT ZABALA [facility]
--- OUTSIDE RECORDS SUMMARY | 2024-04-28 14:47 | XMS_ITS | Encounter Summary ---
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 Name Role Phone CARLOS MARYELLEN Primary Care [...] Name Patient's Relationship to Policy Gaytan IR[facility]O [facility] MEDICARE SUPPLEMEN PRABHJOT Mar 11, 2015 [id number] [phone] JEZ GARCIA PATIENT MEDICARE (WNR) MEDICARE (M) PART A Mar 11, 2015 PART A [id number] [phone] JEZ GARCIA PATIENT MEDICARE (WNR) MEDICARE (M) PART B Mar 11, 2015 PART B [id number] JEZ GARCIA PATIENT MEDICARE (WNR) MEDICARE (M) PART A Mar 11, 2015 PART A [id number] JEZ GARCIA PATIENT MEDICARE (WNR) MEDICARE (M) PART B Mar 11, 2015 PART B [id number] [phone] JEZ GARCIA PATIENT Selected Encounter This section includes the information on record at [place] for the Encounter. Date/Time Encounter Type Encounter Description Reason Provider Source Feb 24, 2024 09:30 AM OFFICE O/P EST MOD 30 MIN PRIMARY CARE/MEDICINE ICD-10-CM E78.5 Hyperlipidemia, unspecified KAREN CARD Alo Encounter Template Text not used by [facility] Assessments - Encounter Diagnoses This section includes the primary and secondary diagnoses documented for the Encounter. 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 Radiology Reports and Pathology Reports are provided separately, in subsequent sections. Lab Results This section contains the Chemistry/Hematology Results that were resulted 30 days before or 30 daysafter the date of the Encounter. Date/Time Source Result Type Result - Unit Interpretation Reference Range Comment Feb 16, 2024 10:52 AM [facility] LIPID PANEL FASTING Specimen Type: SERUM No comment entered. Ordering Provider: KAREN CARD Report Released Date/Time: Feb 12, 2024 04:13 PM Reporting Lab: [address] [address] Performing Lab: [address] [address] CHOLESTEROL 183 mg/dL TRIGLYCERIDE 269 mg/dL H 0-150 LDL calculated 83 mg/dL 0-129 CHOL/HDL 4.0 HDL CHOLESTEROL 46 mg/dL 40-60 Feb 16, 2024 10:52 AM [facility] LIVER FUNCTION Specimen Type: SERUM No comment entered. Ordering Provider: KAREN CARD Report Released Date/Time: Feb 12, 2024 04:13 PM Reporting Lab: [address] [address] Performing Lab: [address] [address] PROTEIN,TOTAL 7.1 g/dL 6.0-8.3 ALBUMIN 4.0 g/dL 3.5-5.0 ALKALINE PHOSPHATASE 39 U/L L 40-150 AST 24 U/L 5-34 ALT 23 U/L BILIRUBIN, TOTAL 1.4 mg/dL H 0.2-1.2 BILIRUBIN, DIRECT 0.4 mg/dL 0-0.5 Feb 16, 2024 10:52 AM [facility] BASIC METABOLIC PANEL (fasting) Specime n Type: SERUM No comment entered. Ordering Provider: KAREN CARD Report Released Date/Time: Feb 12, 2024 04:13 PM Reporting Lab: [address] [address] Performing Lab: [address] [address] UREA NITROGEN 22 mg/dL 7-25 GLUCOSE 110 mg/dL H 65-100 SODIUM 135 mmol/L 135-145 POTASSIUM 4.5 mmol/L 3.5-5.0 CHLORIDE 102 mmol/L 100-110 CO2 24 meq/L 20-30 CREATININE, Serum 1.06 mg/dL 0.50-1.40 eGFR(CKD-EPI 2020) 74 mL/min >60 Feb 16, 2024 10:52 AM [facility] HEMOGLOBIN A1C PANEL Specimen Type: BLOOD Comment: [...] Feb 12, 2024 04:13 PM Reporting Lab: [address] [address] Performing Lab: [facility] [address] [address] HEMOGLOBIN A1C 6.2 H 4.0-5.6 Feb 16, 2024 10:52 AM [facility] TSH Specimen Type: SERUM No comment entered. Ordering Provider: KAREN CARD Report Released Date/Time: Feb 12, 2024 04:13 PM Reporting Lab: [facility] [address] [address] Performing Lab: [facility] [address] [address] TSH 1.05 u[IU]/mL 0.35-5.00 Feb 16, 2024 10:52 AM [facility] MICROALBUMIN CREATININE RATIO PANEL Spe cimen Type: URINE No comment entered. Ordering Provider: KAREN CARD Report Released Date/Time: Feb 12, 2024 04:13 PM Reporting Lab: [facility] [address] [address] Performing [facility]: [facility] [address] [address] MICROALBUMIN/C REATININE RATIO 49.2 mg/g H 0-29.9 MICROALBUMIN,Q UANTITATIVE 2.7 mg/dL RR UNAVAIL CREATININE URINE 54.91 mg/dL Feb 16, 2024 10:52 AM [facility] CBC AND DIFF (AUTO) Specimen Type: BLOOD No comment entered. Ordering Provider: KAREN CARD Report Released Date/Time: Feb 12, 2024 04:13 PM Reporting Lab: [facility]ITALRL TRN [facility] [address] Performing Lab: [facility] [address] WBC 4.58 10*3/uL 4.50-11.00 RBC 4.78 10*6/uL [...] 0.0 0.0-0.0 NRBC, ABS 0.00 10*3/uL 0.00-0.00 Vital Signs: All taken on the encounter date This section contains inpatient and outpatient Vital Signs collected on the date of the Encounter. Date/Time Temperature Pulse Blood Pressure Respiratory Rate SP02 Pain Height Weight Body Mass Index Source Feb 24, 2024 09:33 AM 59 136/86 [place] Immunizations: All administered on the encounter date This section contains immunizations associated to the Encounter. Immunization Series Date Issued Reaction Comments INFLUENZA, HIGH-DOSE, TRIVALENT, PF Feb 23 Social History: Smoking Status (Most current) and Tobacco Use (All prior to encounter date) This section includes the most current, and the historical, smoking and tobacco- related health factors from the [place] facility where the Encounter took place. Current Smoking Status This section includes the most current smoking, or tobacco-related health factor, from the [place] facility where the Encounter took place. Date/Time Current Smoking Status Comment Jose J hodge Feb 24, 2024 09:30 AM VA-TOBACCO NEVER USED [facility] Tobacco Use History This section includes a history of the smoking, or tobacco-related health factors, that were collected on or before the date of the Encounter. The data comes from the [place] facility where the Encounter took place. Date/Time Smoking Status/Tobacco Use Comment F acility Feb 25, 2023 09:00 AM VA-TOBACCO NEVER USED [facility] Feb 25, 2022 10:00 AM VA-TOBACCO NEVER USED [facility] Jan 28, 2018 12:04 PM VA-TOBACCO NEVER USED [facility] September 14, 2017 09:02 AM LIFETIME NON-TOBACCO USER [facility] May 07, 2016 09:00 AM LIFETIME NON-TOBACCO USER [facility] Apr 04, 2015 02:05 PM QUIT TOBACCO USE > 7 YEARS AGO [facility] Jan 03, 2011 09:03 AM LIFETIME NON-TOBACCO USER [facility] Encounter Notes: All associated encounter notes This section contains the clinical notes associated to the Encounter. Date/Time Encounter Note(s) Provider Source Feb 24, 2024 09:41 AM PHYSICIAN NOTE: LOCAL TITLE: MD NOTE STANDARD TITLE: PHYSICIAN NOTE DATE OF NOTE: FEB 24, 2024@09:41 ENTRY DATE: FEB 24, 2024@09:41:25 AUTHOR: KAREN CARD EXP COSIGNER: URGENCY: STATUS: COMPLETED HISTORY OF PRESENT ILLNESS: RC GARCIA, is a 73 yo MALE Gipsy, who presents at the [facility] for follow up visit for chronic medical conditions. Active problems - Computerized Problem List is the source for the following: -Essential hypertension -Hyperlipidemia -Diabetes mellitus type 2 -Migraines -Microalbuminuria due to diabetes mellitus type 2 The following VA and Non-VA meds were reconciled with patient: Active Outpatient Medications (including Supplies): Issue Date Status Last Fill Active Outpatient Medications Refills Expiration 1) AMLODIPINE BESYLATE 2.5MG TAB Qty: 90 ACTIVE Issu:03-30-23 for 90 days Sig: TAKE ONE TABLET BY Refills: 0 Last:12-21-23 MOUTH ONCE DAILY FOR BLOOD Expr:03-30-24 PRESSURE/HEART, DO NOT TAKE WITH GRAPEFRUIT JUICE 2) LOSARTAN 100MG TAB Qty: 90 for 90 days ACTIVE Issu:04-02-23 Sig: TAKE ONE TABLET BY MOUTH ONCE Refills: 0 Last:01-03-24 DAILY FOR BLOOD PRESSURE/HEART - THIS Expr:04-02-24 REPLACES LISINOPRIL 3) METFORMIN HCL 500MG TAB Qty: 90 for 90 ACTIVE Issu:08-28-23 days Sig: TAKE ONE TABLET BY MOUTH AT Refills: 0 Last:01-03-24 BEDTIME FOR DIABETES Expr:08-28-24 4) OMEPRAZOLE 20MG EC CAP Qty: 90 for 90 ACTIVE Issu:11-24-23 days Sig: TAKE ONE CAPSULE BY MOUTH Refills: 3 Last:11-25-23 DAILY Expr:11-24-24 5) PROPRANOLOL HCL 120MG SA CAP Qty: 180 ACTIVE Issu:10-22-23 for 90 days Sig: TAKE ONE CAPSULE BY Refills: 1 Last:01-10-24 MOUTH TWICE DAILY Expr:10-22-24 6) ROSUVASTATIN CA 40MG TAB Qty: 45 for 90 ACTIVE Issu:03-04-23 days Sig: TAKE ONE-HALF TABLET BY Refills: 0 Last:11-30-23 MOUTH AT BEDTIME FOR CHOLESTEROL - Expr:03-04-24 THIS REPLACES ATORVASTATIN 7) SUMATRIPTAN SUCCINATE 25MG TAB Qty: 9 ACTIVE Issu:08-28-23 for 30 days Sig: TAKE ONE TABLET BY Refills: 0 Last:12-03-23 MOUTH DIRECTED AT ONSET OF Expr:08-28-24 HEADACHE; MAY REPEAT IN 2 HOURS IF FIRST DOSE IS NOT EFFECTIVE Start Date Active Non-VA Medications Refills Expiration 1) Non-VA CHOLECALCIF 25MCG (D3-1,000UNIT) ACTIVE TAB SiMCG BY MOUTH ONCE DAILY 8 Total Medications ALLERGIES: ========= Patient has answered NKA LAB HISTORY: CBC, TSH, GFR, LFTsnormal limits glucose level 110 and hemoglobin A1c 6.2 the rest of BMP in normal limits Triglycerides 269 and LDL 83 Microalbumin 49 point PMH: hypertension, hypercholesterolemia, DM type 2, bleeding gastric ulcer, migraines, SURGICAL HISTORY: b/l inguinal hernia FAMILY HISTORY: mother- aortic aneurysm father- of CVA/ [place] at 64yo brother- [place] ta 51 yo sister- breast cancer SOCIAL HISTORY: singles with no children Smoking denies- Drugs denies Alcohol socially 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 - [facility] FROM Apr TO Apr COMBAT SERVICE INDICATED: No REVIEW OF SYSTEMS: No fever, chills, No chest pain shortness of breath at rest or with ambulation No cough or wheezing No abdominal pain nausea or vomiting No joints pain No dizziness; sometimes migraines PHYSICAL EXAMINATION: WD/WN seems to be in NAD S1-S2 positive, RRR PARISH, CTA bilateral Abdomen soft nontender to palpation No edema lower extremities AAO x3; ambulates without help ASSESSMENT/PLAN: -Essential hypertension- controlled today in office; he admits of not checking it at home; he states watches his diet for salt and exercise 3-4 times a week for 90 minutes each -Hyperlipidemia- continue statins, healthy diet and exercises the triglicerides and LDL are not at goal I advised the Gipsy to watch carbohydrates in diet and continue to exercise as tolerated If not improvement with next blood work he may need to increase the dose of statin -Diabetes mellitus type 2- controled with metformin, healthy diet and exercise -Migraines- controlled with propranolol and sumatriptan he states using sumatriptan maybe 2x a week; -Microalbuminuria due to diabetes mellitus type 2-improving with losartan Continue with ARB continue to monitor FOLLOW UP: ========= RTC - 6 months annual with fasting labs Today's documentation was made using voice recognition software. This note may contain spelling/grammatical errors secondary to this software. Every effort is made to correct errors, but if mistakes are found they need to be taken in context. UPCOMING APPOINTMENTS: 09/20/2024 15:00 NHM/OPTOMETRY/LAMAS/ No barriers; Patient understands and agrees to current treatment plan. If pt has any questions, concerns, or changes in current health status he/she will call or come in to the VA. HIV Screening: Patient has been offered HIV testing and has declined. I have explained that HIV testing is recommended for all adults, even if all risk factors are absent. The patient was educated on the risk of delayed screening. Medication Reconciliation: Outpatient: Has the patient been taking medications as documented in the EMLR? YES: The patient has been taking medications as documented in the EMLR. Essential Medication List for Review used to complete this medication reconciliation. INCLUDED IN THIS LIST: Alphabetical list of active outpatient prescriptions dispensed from this [place] (local) and dispensed from another [place] or [facility] facility (remote) as well as inpatient [...] whether with a VA or non-VA provider. JLV Link Data on this list may not be complete. Please check JLV. Allergies/ADRs (Tool #5) FACILITY ALLERGY/ADR -------- No Remote Allergy/ADR Data available for this patient [place] [facility] No Known Allergies Med Recon NoGlossary (Tool #1) INCLUDED IN THIS LIST: Alphabetical list of active outpatient prescriptions dispensed from this [place] (local) and dispensed from another VA or [...] the patient into personal health records (i.e. [employer]) are NOT included in this list. Non-VA medications documented outside this [place], remote inpatient orders (regardless of status) and remote clinic medications are NOT included in this list. The patient and provider must always discuss medications the patient is taking, regardless of where the medication was dispensed or obtained. OUTPT AMLODIPINE BESYLATE 2.5MG TAB (Status = Active) TAKE ONE TABLET BY MOUTH ONCE DAILY FOR BLOOD PRESSURE/HEART, DO NOT TAKE WITH GRAPEFRUIT JUICE Rx# [id number] Last Released: 12/14/23 Qty/Days Supply: Rx Expiration Date: 03/30/24 Refills Remainin Indication: FOR HIGH BLOOD PRESSURE Non-VA CHOLECALCIF 25MCG (D3-1,000UNIT) TAB TAKE ONE TABLET BY MOUTH ONCE DAILY Patient wants to buy from Non-VA pharmacy. Indication: FOR VITAMIN D DEFICIENCY OUTPT LOSARTAN 100MG TAB (Status = Active) TAKE ONE TABLET BY MOUTH ONCE DAILY FOR BLOOD PRESSURE/HEART - THIS REPLACES LISINOPRIL Rx# [id number] Last Released: 01/01/24 Qty/Days Supply: 90 Rx Expiration Date: 04/02/24 Refills Remainin Indication: FOR HIGH BLOOD PRESSURE OUTPT METFORMIN HCL 500MG TAB (Status = Active) TAKE ONE TABLET BY MOUTH AT BEDTIME FOR DIABETES Rx# [id number] Last Released: 01/01/24 Qty/Days Supply: 90 Rx Expiration Date: 08/28/24 Refills Remainin OUTPT OMEPRAZOLE 20MG EC CAP (Status = Active) TAKE ONE CAPSULE BY MOUTH DAILY Rx# [id number] Last Released: 11/26/23 Qty/Days Supply: 90 Rx Expiration Date: 11/24/24 Refills Remainin OUTPT PROPRANOLOL HCL 120MG SA CAP (Status = Active) TAKE ONE CAPSULE BY MOUTH TWICE DAILY Rx# [id number] Last Released: 01/01/24 Qty/Days Supply: 180 Rx Expiration Date: 10/22/24 Refills Remainin OUTPT ROSUVASTATIN CA 40MG TAB (Status = Active) TAKE ONE-HALF TABLET BY MOUTH AT BEDTIME FOR CHOLESTEROL - THIS REPLACES ATORVASTATIN Rx# [id number] Last Released: 11/21/23 Qty/Days Supply: 45 Rx Expiration Date: 03/04/24 Refills Remainin Indication: FOR HIGH CHOLESTEROL OUTPT SUMATRIPTAN SUCCINATE 25MG TAB (Status = Active) TAKE ONE TABLET BY MOUTH DIRECTED AT ONSET OF HEADACHE; MAY REPEAT IN 2 HOURS IF FIRST DOSE IS NOT EFFECTIVE Rx# [id number] Last Released: 12/03/23 Qty/Days Supply: 02/07 Rx Expiration Date: 08/28/24 Refills Remainin SUPPLIES /ct/ KAREN CARD MD PRIMARY CARE PHYSICIAN Signed: 02/24/2024 10:02 KAREN CARD [facility] Feb 24, 2024 09:34 AM PREVENTIVE MEDICIN E NURSING NOTE: LOCAL TITLE: CLINICAL REMINDERS/NURSING STANDARD TITLE: PREVENTIVE MEDICINE NURSING NOTE DATE OF NOTE: FEB 24, 2024@09:34 ENTRY DATE: FEB 24, 2024@09:34:12 AUTHOR: SUJATHA STALEY COSIGNER: URGENCY: STATUS: COMPLETED Advance Directive Screen MH AD: Patient does not have a completed advance directive on file at any facility, VA or outside. S/he is not interested in completing one at this time. The patient received education about Advance Directives and written notification of his/her rights. Suicide Screen: C-SSRS Screening [place] Suicide Severity Rating Scale (C-SSRS) screener 1. Over the past month, have you wished you were or wished you could go to sleep and not wake up? No 2. Over the past month, have you had any actual thoughts of killing yourself? No 3. Over the past month, have you been thinking about how you might do this? Response not required due to responses to other questions. 4. Over the past month, have you had these thoughts and had some intention of acting on them? Response not required due to responses to other questions. 5. Over the past month, have you started to work out or worked out the details of how to kill yourself? Response not required due to responses to other questions. 6. If yes, at any time in the past month did you intend to carry out this plan? Response not required due to responses to other questions. 7. In your lifetime, have you ever done anything, started to do anything, or prepared to do anything to end your life (for example, collected pills, obtained a gun, gave away valuables, went to the roof but didn't jump)? No 8. If YES, was this within the past 3 months? Response not required due to responses to other questions. Depression Screening: Perform PHQ-2 A PHQ-2 screen was performed. The score was 0 which is a negative screen for depression. Over the past two weeks, how often have you been bothered by the following problems? 1. Little interest or pleasure in doing things Not at all 2. Feeling down, depressed, or hopeless Not at all Tobacco Use Screening: The patient has never used tobacco. Influenza Immunization: Influenza, High-Dose, Trivalent, Preservative Free (Fluzone-Syringe) Administered: INFLUENZA, HIGH-DOSE, TRIVALENT, PF Date Administered: Feb 24, 2024 09:30 [employer] Observer: SANOFI PASTEUR Lot: [id number] Exp Date: Nov 07, 2024 [facility]: [phone] Admin Route/Site: INTRAMUSCULAR/LEFT DELTOID Dosage: 0.5mL Vaccine Information Statement(s): INFLUENZA(FLU) VACC(INACTIVATED OR RECOMBINANT)VIS Dec 14, 2020 (SLOVENIAN) Order By: Policy Administered By: Sujatha Staley The Influenza Vaccine Information Statement (VIS) was reviewed with the patient/caregiver which lists the benefits and risks of the vaccine and the risks of not receiving the Influenza vaccine. The patient/caregiver denied any prior severe reaction to this vaccine or its components or a severe allergic reaction, such as anaphylaxis, to any vaccine or any injectable therapy. The patient/caregiver gave verbal consent to receive the vaccine. Alcohol Use Screen (AUDIT-C): Alcohol Screen: SCREEN FOR ALCOHOL (AUDIT-C) An alcohol screening test (AUDIT-C) was negative (score=0). 1. How often did you have a drink containing alcohol in the past year? Consider a drink to be a 12 ounce can or bottle of regular beer, 8 ounces of malt liquor, a 5 ounce glass of table wine, or a 1.5 ounce shot of liquor (like scotch, gin, or vodka). Never 2. How many drinks containing alcohol did you have on a typical day when you were drinking in the past year? Response not required due to responses to other questions. 3. How often did you have six or more drinks on one occasion in the past year? Response not required due to responses to other questions. COVID-19 Immunization: Refused Moderna Monovalent COVID-19 vaccine Immunization: COVID-19 (MODERNA), MRNA, LNP-S, PF, 50 MCG/0.5 ML (AGES 12+ YEARS) Refusal Reason: PATIENT DECISION Patient refuses all immunization(s) in the COVID-19 group Date Documented: 02/24/24 09:35 Sexual Orientation: The patient thinks of their sexual orientation as: Straight or Heterosexual /es/ SUJATHA STALEY LPN Licensed Practical Nurse Signed: 02/24/2024 09:35 SUJATHA STALEY
--- OUTSIDE RECORDS SUMMARY | 2024-04-28 14:47 | XMS_ITS | Continuity of Care Document ---
Author Name [facility] Organization [facility] Care Team Providers Care Sales Agent Name Role Phone [facility] Unavailable Unavailable Problems Combined list of problems from Department of Defense and Veterans Affairs facilities. It does not include entries that were removed or entered in error. Problem Status Onset Date Problem Type Date of Resolution Comments Source Diabetes Mellitus Type 2 (SCT 52991537) Active Condition [place] Essential hypertension (SNOMED CT 33343636) Active Condition [facility] Gastric Ulcer (ICD-9-CM 531.90) Active Condition Jul 15 Entered By: MISTY FERRELL Comment: 08/2009 [facility] Headache Active Condition [facility] history of bleeding gastric ulcer Active Condition [place] History of colonoscopy Active Condition Aug 26, 2022 Entered By: KAREN CARD Comment: Colonoscopy [facility] 2009 F/U in 10 yrs [place] Hypercalcemia Active Condition Feb Entered By: MISTY FERRELL Comment: 2015 mild. elev. PTH [place] Hyperlipidemia Active Condition [facility] Hyperlipidemia (SCT 00868184) Active Condition [place] Impaired glucose tolerance (SNOMED CT 8574220) Active Condition [place] Microalbuminuria due to type 2 diabetes mellitus Active Condition [facility] IELD Migraine Active Condition [place] Migraine, unspecified, without mention of Intractable Migraine without mention o Active Condition [facility] Rhinitis Active Condition [facility] Skin tag Active Condition [place] Diagnosis: ICD-10-CM E78.5 Hyperlipidemia, unspecified Active Diagnosis [place] Diagnosis: ICD-10-CM I10 Essential (primary) hypertension Active Diagnosis [place] Diagnosis: ICD-10-CM L91.8 Other hypertrophic disorders of the skin Active Diagnosis [place] Medications Combined list of outpatient medications from Department of Defense and Veterans Affairs facilities.Medications provided include 1) outpatient medications from the last 15 months, and 2) patient-reported medications. Medication Details Route Status Patient Instructions Prescription Expires Prescription Number Last Dispense Date Ordering Provider Order Date Order Qty Source AMLODIPINE BESYLATE 2.5MG TAB TAKE ONE TABLET BY MOUTH ONCE DAILY FOR BLOOD PRESSURE /HEART, DO NOT TAKE WITH GRAPEFRU IT JUICE ORAL ACTIVE 02/24/2025 [id number] 4 PEDRITO CARD [facility] F 2023 90 [place] AMLODIPINE BESYLATE 2.5MG TAB TAKE ONE TABLET BY MOUTH ONCE DAILY FOR BLOOD PRESSURE /HEART, DO NOT TAKE WITH GRAPEFRU IT JUICE ORAL DISCONT INUED 03/30/2024 [id number] PEDRITO CARD HARIS 2022 90 [place] CHOLECALCIF ENID 25MCG (1,000UNIT) TAB TAKE ONE TABLET BY MOUTH ONCE DAILY ORAL ACTIVE PEDRITO CARD [facility] F 2022 [place] LOSARTAN POTASSIUM 100MG TAB TAKE ONE TABLET BY MOUTH ONCE DAILY FOR BLOOD PRESSURE /HEART - THIS REPLACES LISINOPR [place] ORAL ACTIVE 02/24/2025 [id number] 4 PEDRITO CARD [facility] F 2023 90 [place] LOSARTAN POTASSIUM 100MG TAB TAKE ONE TABLET BY MOUTH ONCE DAILY FOR BLOOD PRESSURE /HEART - THIS REPLACES LISINOPR [place] ORAL DISCONT INUED 2024 [id number] 4 PEDRITO CARD [facility] F 2022 90 [place] METFORMIN HCL 500MG TAB TAKE ONE TABLET BY MOUTH AT BEDTIME FOR DIABETES ORAL ACTIVE 05/24/2024 [id number] 4 PEDRITO CARD [facility] F 2023 90 [place] METFORMIN HCL 500MG TAB TAKE ONE TABLET BY MOUTH AT BEDTIME FOR DIABETES ORAL DISCONT INUED 08/28/2024 [id number] 4 [facility] 90 [place] METFORMIN HCL 500MG TAB TAKE ONE TABLET BY MOUTH AT BEDTIME FOR DIABETES ORAL DISCONT INUED 08/27/2023 [id number] 4 ELYSEALBERPEDRITO Cary HARIS F 2022 90 [place] OMEPRAZOLE 20MG CAP,EC TAKE ONE CAPSULE BY MOUTH DAILY ORAL ACTIVE 11/24/2024 [id number] 4 PEDRITO CARD [facility] F 2023 90 [place] OMEPRAZOLE 20MG CAP,EC TAKE ONE CAPSULE BY MOUTH DAILY ORAL DISCONT INUED 10/10/2023 [id number] 4 PEDRITO CARD [facility] F 2022 90 [place] PROPRANOLOL HCL 120MG CAP,SA TAKE ONE CAPSULE BY MOUTH TWICE DAILY ORAL ACTIVE 10/22/2024 [id number] 4 PEDRITO CARD [facility] F 2023 180 [place] PROPRANOLOL HCL 120MG CAP,SA TAKE ONE CAPSULE BY MOUTH TWICE DAILY ORAL DISCONT INUED 08/27/2023 [id number] 4 PEDRITO CARD [facility] F 2022 180 [place] ROSUVASTATI N CA 40MG TAB TAKE ONE-HALF TABLET BY MOUTH AT BEDTIME FOR CHOLESTE ROL ORAL ACTIVE 02/24/2025 [id number] 4 PEDRITO CARD [facility] F 2023 45 [place] ROSUVASTATI N CA 40MG TAB TAKE ONE-HALF TABLET BY MOUTH AT BEDTIME FOR CHOLESTE ROL - THIS REPLACES ATORVAST ATIN ORAL DISCONT INUED 03/04/2024 [id number] 4 PEDRITO CARD [facility] F 2022 45 [place] SUMATRIPTAN SUCCINATE 25MG TAB TAKE ONE TABLET BY MOUTH DIRECTED AT ONSET OF HEADACHE ; MAY REPEAT IN 2 HOURS IF FIRST DOSE IS NOT EFFECTIV E ORAL ACTIVE 02/24/2025 [id number] 4 PEDRITO CARD RM[facility] F 2023 9 [place] SUMATRIPTAN SUCCINATE 25MG TAB TAKE ONE TABLET BY MOUTH DIRECTED AT ONSET OF HEADACHE ; MAY REPEAT IN 2 HOURS IF FIRST DOSE IS NOT EFFECTIV E ORAL DISCONT INUED 08/28/2024 [id number] 4 PEDRITO CARD RMEN F 2023 9 [place] SUMATRIPTAN SUCCINATE 25MG TAB TAKE ONE TABLET BY MOUTH DIRECTED AT ONSET OF HEADACHE ; MAY REPEAT IN 2 HOURS IF FIRST DOSE IS NOT EFFECTIV E ORAL DISCONT INUED 08/27/2023 [id number] 4 STEPHIEPEDRITO SABAS F 2022 9 [facility] IELD TRIAMCINOLO NE ACETONIDE 0.5% CREAM,TOP APPLY A SMALL AMOUNT TOPICALL Y ONCE DAILY NEEDED FOR ITCHING TOPICA L ACTIVE 02/24/2025 [id number] ARNOLDOLuis DanielPEDRITO SABAS F 2023 [address] [place] Immunizations Combined list of available immunizations from the Department of Defense and Veterans Affairs facilities. Immunization Series Date Given Administered By Site Reaction Lot Number CVX Code Drug Radio Interference Trouble Shooter Status Comments Source INFLUENZA, HIGH-DOSE, TRIVALENT, PF 2023 JASPREET COX LEFT DELTO ID [id number] 135 complet ed [place] INFLUENZA, HIGH-DOSE, QUADRIVALENT 2022 JASPREET COX LEFT DELTO ID [id number] 197 complet ed [place] INFLUENZA VACCINE, QUADRIVALENT, ADJUVANTED 2021 205 complet ed [place] COVID-19 (MODERNA), MRNA, LNP-S, PF, 100 MCG/0.5ML DOSE OR 50 MCG/0.25ML DOSE 4 2021 207 complet ed MOD; [id number]; 2 [place] COVID-19 (MODERNA), MRNA, LNP-S, PF, 100 MCG/0.5ML DOSE OR 50 MCG/0.25ML DOSE 3 2020 207 complet ed [facility] INFLUENZA VACCINE, QUADRIVALENT, ADJUVANTED 2020 205 complet ed [place] ZOSTER RECOMBINANT 2 2020 187 complet ed [place] PNEUMOCOCCAL POLYSACCHARID E [id number] 2020 33 complet ed [facility] ZOSTER RECOMBINANT 1 2020 187 complet ed [facility] COVID-19 (MODERNA), MRNA, LNP-S, PF, 100 MCG/0.5 ML DOSE 2 2020 207 complet ed MOD; [id number]; 1 [place] COVID-19 (MODERNA), MRNA, LNP-S, PF, 100 MCG/0.5 ML DOSE 1 2020 207 complet ed MOD; [id number]; 1 [place] INFLUENZA, INJECTABLE, QUADRIVALENT, PRESERVATIVE FREE 2019 150 complet ed [place] INFLUENZA, SEASONAL, INJECTABLE 2017 141 complet ed Site: Right Deltoid [place] INFLUENZA, SEASONAL, INJECTABLE 2016 141 complet ed Site: Right Deltoid [place] FLU,3 YRS (HISTORICAL) 2015 88 complet ed [place] PNEUMOCOCCAL CONJUGATE PCV 13 2015 133 complet ed [place] FLU,3 YRS (HISTORICAL) 2014 88 complet ed Site: Right Deltoid [place] TD(ADULT) UNSPECIFIED FORMULATION 2013 139 complet ed Vet to send actual date on portal [facility] FLU,3 YRS (HISTORICAL) 2012 88 complet ed [facility] ZOSTER (HISTORICAL) 2012 121 complet ed [facility] FLU,3 YRS (HISTORICAL) 2011 88 complet ed Site: Left Deltoid [place] FLU,3 YRS (HISTORICAL) 2010 88 complet ed [facility] FLU,3 YRS (HISTORICAL) 2009 88 complet ed [facility] TD(ADULT) UNSPECIFIED FORMULATION 2008 139 complet ed [facility] DTAP, UNSPECIFIED FORMULATION 2006 107 complet ed [facility] Results Combined list of recent chemistry, hematology and other laboratory results from Department of Defense and Veterans Affairs, ranging from 15 months to all on record, depending upon the facility. Order Name Results Value Reference Range Date Interpretation Specimen Comments Source LIPID PANEL FASTING CHOLESTEROL [MASS/VOLUM E] IN SERUM OR PLASMA 183 mg/dL 02/15 Specimen Type: SERUM No comment entered. Ordering Provider: AARON CARD Report Released Date/Time: Feb 12, 2024 04:13 PM Reporting Lab[facility] [address] [address] Performing [facility]: [facility] [address] [address] [place] LIPID PANEL FASTING TRIGLYCERID E [MASS/VOLUM E] IN SERUM OR PLASMA 269 mg/dL 0 - 150 02/15 H Specimen Type: SERUM No comment entered. Ordering Provider: AARON CARD Report Released Date/Time: Feb 12, 2024 04:13 PM Reporting Lab: [facility] [address] [address] Performing Lab: [facility] [address] [address] [place] LIPID PANEL FASTING CHOLESTEROL IN LDL [MASS/VOLUM E] IN SERUM OR PLASMA BY CALCULATION 83 mg/dL 0 - 129 02/15 Specimen Type: SERUM No comment entered. Ordering Provider: AARON CARD Report Released Date/Time: Feb 12, 2024 04:13 PM Reporting Lab: [facility] [address] [address] Performing Lab: [facility] [address] [address] [place] LIPID PANEL FASTING CHOLESTEROL .TOTAL/CHOL ESTEROL IN HDL [MASS RATIO] IN SERUM OR PLASMA 4.0 02/15 Specimen Type: SERUM No comment entered. Ordering Provider: AARON CARD Report Released Date/Time: Feb 12, 2024 04:13 PM Reporting Lab: [facility] [address] [address] Performing Lab: [facility] [address] [address] [place] LIPID PANEL FASTING CHOLESTEROL IN HDL [MASS/VOLUM E] IN SERUM OR PLASMA 46 mg/dL 40 - 60 02/15 Specimen Type: SERUM No comment entered. Ordering Provider: AARON CARD Report Released Date/Time: Feb 12, 2024 04:13 PM Reporting Lab: [facility] [address] [address] Performing Lab: [facility] [address] [place] BASIC METABOLIC PANEL (fasting) UREA NITROGEN [MASS/VOLUM E] IN SERUM OR PLASMA 22 mg/dL 7 - 25 02/15 Specimen Type: SERUM No comment entered. Ordering Provider: AARON CARD Report Released Date/Time: Feb 12, 2024 04:13 PM Reporting Lab: [facility] [address] [address] Performing Lab: [facility] [address] [address] [place] BASIC METABOLIC PANEL (fasting) GLUCOSE [MASS/VOLUM E] IN SERUM OR PLASMA 110 mg/dL 65 - 100 02/15 H Specimen Type: SERUM No comment entered. Ordering Provider: AARON CARD Report Released Date/Time: Feb 12, 2024 04:13 PM Reporting Lab: [facility] [address] [address] Performing Lab: [facility] [address] [address] [place] BASIC METABOLIC PANEL (fasting) SODIUM [MOLES/VOLU ME] IN SERUM OR PLASMA 135 mmol/L 135 - 145 02/15 Specimen Type: SERUM No comment entered. Ordering Provider: AARON CARD Report Released Date/Time: Feb 12, 2024 04:13 PM Reporting Lab: [facility] [address] [address] Performing Lab: [facility] [address] [address] [place] BASIC METABOLIC PANEL (fasting) POTASSIUM [MOLES/VOLU ME] IN SERUM OR PLASMA 4.5 mmol/L 3.5 - 5.0 02/15 Specimen Type: SERUM No comment entered. Ordering Provider: AARON CARD Report Released Date/Time: Feb 12, 2024 04:13 PM Reporting Lab: [facility] [address] [address] Performing Lab: [facility] [address] [address] [place] BASIC METABOLIC PANEL (fasting) CHLORIDE [MOLES/VOLU ME] IN SERUM OR PLASMA 102 mmol/L 100 - 110 02/15 Specimen Type: SERUM No comment entered. Ordering Provider: AARON CARD Report Released Date/Time: Feb 12, 2024 04:13 PM Reporting Lab: [facility] [address] [address] Performing Lab: [facility] [address] [address] [place] BASIC METABOLIC PANEL (fasting) CARBON DIOXIDE, TOTAL [MOLES/VOLU ME] IN SERUM OR PLASMA 24 meq/L 20 - 30 02/15 Specimen Type: SERUM No comment entered. Ordering Provider: AARON CARD Report Released Date/Time: Feb 12, 2024 04:13 PM Reporting Lab: [facility] [address] [address] Performing Lab: [facility] [address] [address] [place] BASIC METABOLIC PANEL (fasting) CREATININE [MASS/VOLUM E] IN SERUM OR PLASMA 1.06 mg/dL 0.50 - 1.40 02/15 Specimen Type: SERUM No comment entered. Ordering Provider: AARON CARD Report Released Date/Time: Feb 12, 2024 04:13 PM Reporting Lab: [facility] [address] [address] Performing Lab: [facility] [address] [address] [place] BASIC METABOLIC PANEL (fasting) GLOMERULAR FILTRATION RATE/1.73 SQ M.PREDICTED [VOLUME RATE/AREA] IN SERUM, PLASMA OR BLOOD BY CREATININE- BASED FORMULA (CKD-EPI 2020) 74 mL/min 60 02/15 Specimen Type: SERUM No comment entered. Ordering Provider: AARON CARD Report Released Date/Time: Feb 12, 2024 04:13 PM Reporting Lab: [facility] [address] [address] Performing Lab: [facility]EN[facility] [address] [address] [place] LIVER FUNCTION PROTEIN [MASS/VOLUM E] IN SERUM OR PLASMA 7.1 g/dL 6.0 - 8.3 02/15 Specimen Type: SERUM No comment entered. Ordering Provider: AARON CARD Report Released Date/Time: Feb 12, 2024 04:13 PM Reporting Lab: [facility] [address] Performing Lab: [facility] [address] [place] LIVER FUNCTION ALBUMIN [MASS/VOLUM E] IN SERUM OR PLASMA 4.0 g/dL 3.5 - 5.0 02/15 Specimen Type: SERUM No comment entered. Ordering Provider: AARON CARD Report Released Date/Time: Feb 12, 2024 04:13 PM Reporting Lab: [facility] [address] [address] Performing Lab: [facility] [address] [place] LIVER FUNCTION ALKALINE PHOSPHATASE [ENZYMATIC ACTIVITY/VO LUME] IN SERUM OR PLASMA 39 U/L 40 - 150 02/15 L Specimen Type: SERUM No comment entered. Ordering Provider: AARON CARD Report Released Date/Time: Feb 12, 2024 04:13 PM Reporting Lab: [facility]ENUSE[address] [address] Performing Lab: [facility]EN[facility] [address] [place] LIVER FUNCTION ASPARTATE AMINOTRANSF ERASE [ENZYMATIC ACTIVITY/VO LUME] IN SERUM OR PLASMA 24 U/L 5 - 34 02/15 Specimen Type: SERUM No comment entered. Ordering Provider: AARON CARD Report Released Date/Time: Feb 12, 2024 04:13 PM Reporting Lab: [facility] [address] [address] Performing Lab: [facility] [address] [address] [place] LIVER FUNCTION ALANINE AMINOTRANSF ERASE [ENZYMATIC ACTIVITY/VO LUME] IN SERUM OR PLASMA 23 U/L 02/15 Specimen Type: SERUM No comment entered. Ordering Provider: AARON CARD Report Released Date/Time: Feb 12, 2024 04:13 PM Reporting Lab: [facility] [address] [address] Performing Lab: [facility] [address] [address] [place] LIVER FUNCTION BILIRUBIN.T OTAL [MASS/VOLUM E] IN SERUM OR PLASMA 1.4 mg/dL 0.2 - 1.2 02/15 H Specimen Type: SERUM No comment entered. Ordering Provider: AARON CARD Report Released Date/Time: Feb 12, 2024 04:13 PM Reporting Lab: [facility] [address] [address] Performing Lab: [facility]ENUSE[address] [address] [place] LIVER FUNCTION BILIRUBIN.D IRECT [MASS/VOLUM E] IN SERUM OR PLASMA 0.4 mg/dL 0 - 0.5 02/15 Specimen Type: SERUM No comment entered. Ordering Provider: AARON CARD Report Released Date/Time: Feb 12, 2024 04:13 PM Reporting Lab: [facility] [address] Performing Lab: [facility] [address] [address] [place] HEMOGLOBI N A1C PANEL HEMOGLOBIN A1C/HEMOGLO BIN.TOTAL IN BLOOD BY HPLC 6.2 4.0 - 5.6 02/15 H Specimen Type: BLOOD Comment: Values obtained from A1C measurement s can vary. For atypical A1C assays, a reported value of 7.0 could actually be between 6.72 and 7.28 if measured by a reference method. A reported value of 9.0 could actually be between 8.73 and 9.27. Ref: http://www. ngsp.org/[place] Pdata.asp Ordering Provider: AARON CARD Report Released Date/Time: Feb 12, 2024 04:13 PM Reporting Lab: [facility] [place] [address] [address] Performing Lab: [facility] [place] [address] [address] [place] TSH THYROTROPIN [UNITS/VOLU ME] IN SERUM OR PLASMA 1.05 u[IU]/ mL 0.35 - 5.00 02/15 Specimen Type: SERUM No comment entered. Ordering Provider: AARON CARD Report Released Date/Time: Feb 12, 2024 04:13 PM Reporting Lab: [facility] [place] [address] [address] Performing Lab: [facility] [place] [address] [address] [place] MICROALBU MIN CREATININ E RATIO PANEL MICROALBUMI N/CREATININ E [MASS RATIO] IN URINE 49.2 mg/g 0 - 29.9 02/15 H Specimen Type: URINE No comment entered. Ordering Provider: AARON CARD Report Released Date/Time: Feb 12, 2024 04:13 PM Reporting Lab: [facility] [place] [address] [address] Performing Lab: [facility] [address] [address] [place] MICROALBU MIN CREATININ E RATIO PANEL MICROALBUMI N [MASS/VOLUM E] IN URINE 2.7 mg/dL 02/15 Specimen Type: URINE No comment entered. Ordering Provider: AARON CARD Report Released Date/Time: Feb 12, 2024 04:13 PM Reporting Lab: [facility] [place] [phone] Performing Lab: [facility] [address] [address] [place] MICROALBU MIN CREATININ E RATIO PANEL CREATININE [MASS/VOLUM E] IN URINE 54.91 mg/dL 02/15 Specimen Type: URINE No comment entered. Ordering Provider: AARON CARD Report Released Date/Time: Feb 12, 2024 04:13 PM Reporting Lab: [facility] [address] [address] Performing Lab: [facility] [address] [address] [place] CBC AND DIFF (AUTO) LEUKOCYTES [#/VOLUME] IN BLOOD BY AUTOMATED COUNT 4.58 10*3/u L 4.50 - 11.00 02/15 Specimen Type: BLOOD No comment entered. Ordering Provider: AARON CARD Report Released Date/Time: Feb 12, 2024 04:13 PM Reporting Lab: [facility]EN[facility] [address] Performing Lab: [facility]ENUSE[address] [address] [place] CBC AND DIFF (AUTO) ERYTHROCYTE S [#/VOLUME] IN BLOOD BY AUTOMATED COUNT 4.78 10*6/u L 4.23 - 5.66 02/15 Specimen Type: BLOOD No comment entered. Ordering Provider: AARON CARD Report Released Date/Time: Feb 12, 2024 04:13 PM Reporting Lab: [facility] [address] Performing Lab: [facility]ENUSE[address] [address] [place] CBC AND DIFF (AUTO) HEMOGLOBIN [MASS/VOLUM E] IN BLOOD 14.6 g/dL 12.8 - 17 02/15 Specimen Type: BLOOD No comment entered. Ordering Provider: AARON CARD Report Released Date/Time: Feb 12, 2024 04:13 PM Reporting Lab: [facility] [address] Performing Lab: [facility] [address] [address] [place] CBC AND DIFF (AUTO) HEMATOCRIT [VOLUME FRACTION] OF BLOOD BY AUTOMATED COUNT 42.6 39.2 - 50.4 02/15 Specimen Type: BLOOD No comment entered. Ordering Provider: AARON CARD Report Released Date/Time: Feb 12, 2024 04:13 PM Reporting Lab: [facility] [address] [address] Performing Lab: [address] [address] [place] CBC AND DIFF (AUTO) MCV [ENTITIC VOLUME] BY AUTOMATED COUNT 89.1 fL 82 - 99 02/15 Specimen Type: BLOOD No comment entered. Ordering Provider: AARON CARD Report Released Date/Time: Feb 12, 2024 04:13 PM Reporting Lab: [facility] [address] [address] Performing Lab: [address] [address] [place] CBC AND DIFF (AUTO) MCHC [MASS/VOLUM E] BY AUTOMATED COUNT 34.3 g/dL 30.8 - 35.1 02/15 Specimen Type: BLOOD No comment entered. Ordering Provider: AARON CARD Report Released Date/Time: Feb 12, 2024 04:13 PM Reporting Lab: [facility] [address] [address] Performing Lab: [address] [address] [place] CBC AND DIFF (AUTO) PLATELETS [#/VOLUME] IN BLOOD BY AUTOMATED COUNT 159 10*3/u L 140 - 360 02/15 Specimen Type: BLOOD No comment entered. Ordering Provider: AARON CARD Report Released Date/Time: Feb 12, 2024 04:13 PM Reporting Lab: [facility] [place] [address] [address] Performing Lab: [facility] [place] [address] [address] [place] CBC AND DIFF (AUTO) ERYTHROCYTE DISTRIBUTIO N WIDTH [RATIO] BY AUTOMATED COUNT 13.1 12.0 - 16.0 02/15 Specimen Type: BLOOD No comment entered. Ordering Provider: AARON CARD Report Released Date/Time: Feb 12, 2024 04:13 PM Reporting Lab: [facility] [place] [address] [address] Performing Lab: [facility] [address] [address] [place] CBC AND DIFF (AUTO) MONOCYTES [#/VOLUME] IN BLOOD BY AUTOMATED COUNT 0.53 10*3/u L 0.30 - 1.10 02/15 Specimen Type: BLOOD No comment entered. Ordering Provider: AARON CARD Report Released Date/Time: Feb 12, 2024 04:13 PM Reporting Lab: [facility] [place] [address] [address] Performing Lab: [facility] [place] [address] [address] [place] CBC AND DIFF (AUTO) MCH [ENTITIC MASS] BY AUTOMATED COUNT 30.5 pg 26.2 - 32.6 02/15 Specimen Type: BLOOD No comment entered. Ordering Provider: AARON CARD Report Released Date/Time: Feb 12, 2024 04:13 PM Reporting Lab: [facility] [place] [address] [address] Performing Lab[facility] [place] [address] [address] [place] CBC AND DIFF (AUTO) NEUTROPHILS /100 LEUKOCYTES IN BLOOD BY AUTOMATED COUNT 54.6 43.7 - 75.8 02/15 Specimen Type: BLOOD No comment entered. Ordering Provider: AARON CARD Report Released Date/Time: Feb 12, 2024 04:13 PM Reporting Lab: [facility] [place] [address] Performing Lab: [facility] [address] [address] [place] CBC AND DIFF (AUTO) LYMPHOCYTES /100 LEUKOCYTES IN BLOOD BY AUTOMATED COUNT 23.8 14.0 - 42.3 02/15 Specimen Type: BLOOD No comment entered. Ordering Provider: AARON CARD Report Released Date/Time: Feb 12, 2024 04:13 PM Reporting Lab: [facility] [address] [address] [facility]forming [facility]: [facility] [address] [address] [place] CBC AND DIFF (AUTO) MONOCYTES/1 00 LEUKOCYTES IN BLOOD BY AUTOMATED COUNT 11.6 5.1 - 13.7 02/15 Specimen Type: BLOOD No comment entered. Ordering Provider: AARON CARD Report Released Date/Time: Feb 12, 2024 04:13 PM Reporting [facility] [place] [facility] [address] [address] Performing [facility]: [facility] [address] [address] [place] CBC AND DIFF (AUTO) EOSINOPHILS /100 LEUKOCYTES IN BLOOD BY AUTOMATED COUNT 8.7 0.4 - 6.8 02/15 H Specimen Type: BLOOD No comment entered. Ordering Provider: AARON CARD Report Released Date/Time: Feb 12, 2024 04:13 PM Reporting Lab: [facility] [address] [address] Performing Lab: [facility]TRN [facility]IL[facility]ENUSE[address] [address] [place] CBC AND DIFF (AUTO) BASOPHILS/1 00 LEUKOCYTES IN BLOOD BY AUTOMATED COUNT 1.1 0.1 - 2.0 02/15 Specimen Type: BLOOD No comment entered. Ordering Provider: AARON CARD Report Released Date/Time: Feb 12, 2024 04:13 PM Reporting Lab: [facility] [address] [address] Performing Lab: [facility]ENTERTRN [facility]DRENUSENEWY[facility] [address] [facility] [address] [place] CBC AND DIFF (AUTO) NEUTROPHILS [#/VOLUME] IN BLOOD BY AUTOMATED COUNT 2.50 10*3/u L 2.20 - 7.60 02/15 Specimen Type: BLOOD No comment entered. Ordering Provider: AARON CARD Report Released Date/Time: Feb 12, 2024 04:13 PM Reporting Lab: [facility] [address] [address] Performing Lab: [facility] SYSTEMN [address] [address] [place] CBC AND DIFF (AUTO) LYMPHOCYTES [#/VOLUME] IN BLOOD BY AUTOMATED COUNT 1.09 10*3/u L 1.00 - 3.20 02/15 Specimen Type: BLOOD No comment entered. Ordering Provider: AARON CARD Report Released Date/Time: Feb 12, 2024 04:13 PM Reporting Lab: [facility]N [address] [address] Performing Lab: [facility] SYSTEMN [facility]ILDRENUSE[address] [address] [place] CBC AND DIFF (AUTO) EOSINOPHILS [#/VOLUME] IN BLOOD BY AUTOMATED COUNT 0.40 10*3/u L 0.03 - 0.44 02/15 Specimen Type: BLOOD No comment entered. Ordering Provider: AARON CARD Report Released Date/Time: Feb 12, 2024 04:13 PM Reporting Lab: [facility]ENTERTRN [facility]IL[facility]ENUSE[address] [address] Performing Lab: [facility]N [facility] CHILDRENUSE[address] [address] [place] CBC AND DIFF (AUTO) BASOPHILS [#/VOLUME] IN BLOOD BY AUTOMATED COUNT 0.05 10*3/u L 0.01 - 0.13 02/15 Specimen Type: BLOOD No comment entered. Ordering Provider: AARON CARD Report Released Date/Time: Feb 12, 2024 04:13 PM Reporting Lab: [address] [address] Performing Lab: [address] [address] [place] CBC AND DIFF (AUTO) IMMATURE GRANULOCYTE S/100 LEUKOCYTES IN BLOOD BY AUTOMATED COUNT 0.2 0.0 - 0.7 02/15 Specimen Type: BLOOD No comment entered. Ordering Provider: AARON CARD Report Released Date/Time: Feb 12, 2024 04:13 PM Reporting Lab: [address] [address] Performing Lab: [address] [address] [place] CBC AND DIFF (AUTO) IMMATURE GRANULOCYTE S [#/VOLUME] IN BLOOD 0.01 10*3/u L 0.00 - 0.06 02/15 Specimen Type: BLOOD No comment entered. Ordering Provider: AARON CARD Report Released Date/Time: Feb 12, 2024 04:13 PM Reporting Lab: [address] [address] Performing Lab: [address] [address] [place] CBC AND DIFF (AUTO) NRBC % 0.0 0.0 - 0.0 02/15 Specimen Type: BLOOD No comment entered. Ordering Provider: AARON CARD Report Released Date/Time: Feb 12, 2024 04:13 PM Reporting Lab: [address] [address] Performing Lab: [address] [address] [place] CBC AND DIFF (AUTO) NRBC, ABS 0.00 10*3/u L 0.00 - 0.00 02/15 Specimen Type: BLOOD No comment entered. Ordering Provider: AARON CARD Report Released Date/Time: Feb 12, 2024 04:13 PM Reporting Lab: [facility] [address] [address] Performing Lab: [facility] [address] [address] [place] LIPID PANEL FASTING CHOLESTEROL [MASS/VOLUM E] IN SERUM OR PLASMA 154 mg/dL 08/20 Specimen Type: SERUM No comment entered. Ordering Provider: AARON CARD Report Released Date/Time: Aug 10, 2023 01:40 PM Reporting Lab: [facility] [address] [address] Performing Lab: [address] [address] [place] LIPID PANEL FASTING TRIGLYCERID E [MASS/VOLUM E] IN SERUM OR PLASMA 239 mg/dL 0 - 150 08/20 H Specimen Type: SERUM No comment entered. Ordering Provider: AARON CARD Report Released Date/Time: Aug 10, 2023 01:40 PM Reporting Lab: [facility] [address] [address] Performing Lab: [facility] [address] [address] [place] LIPID PANEL FASTING CHOLESTEROL IN LDL [MASS/VOLUM E] IN SERUM OR PLASMA BY CALCULATION 63 mg/dL 0 - 129 08/20 Specimen Type: SERUM No comment entered. Ordering Provider: AARON CARD Report Released Date/Time: Aug 10, 2023 01:40 PM Reporting Lab: [facility] [address] [address] Performing Lab: [facility] [address] [address] [place] LIPID PANEL FASTING CHOLESTEROL .TOTAL/CHOL ESTEROL IN HDL [MASS RATIO] IN SERUM OR PLASMA 3.6 08/20 Specimen Type: SERUM No comment entered. Ordering Provider: AARON CARD Report Released Date/Time: Aug 10, 2023 01:40 PM Reporting Lab: [facility] [place] [facility] [address] [facility] [address] Performing Lab: [facility] [address] [address] [place] LIPID PANEL FASTING CHOLESTEROL IN HDL [MASS/VOLUM E] IN SERUM OR PLASMA 43 mg/dL 40 - 60 08/20 Specimen Type: SERUM No comment entered. Ordering Provider: AARON CARD Report Released Date/Time: Aug 10, 2023 01:40 PM Reporting Lab: [facility] [address] [address] Performing Lab: [address] [address] [place] BASIC METABOLIC PANEL (fasting) UREA NITROGEN [MASS/VOLUM E] IN SERUM OR PLASMA 18 mg/dL 7 - 25 08/20 Specimen Type: SERUM No comment entered. Ordering Provider: AARON CARD Report Released Date/Time: Aug 10, 2023 01:40 PM Reporting Lab: [address] [address] Performing Lab: [facility] [address] [address] [place] BASIC METABOLIC PANEL (fasting) GLUCOSE [MASS/VOLUM E] IN SERUM OR PLASMA 117 mg/dL 65 - 100 08/20 H Specimen Type: SERUM No comment entered. Ordering Provider: AARON CARD Report Released Date/Time: Aug 10, 2023 01:40 PM Reporting Lab: [facility] [address] [address] Performing Lab: [facility] [address] [address] [place] BASIC METABOLIC PANEL (fasting) SODIUM [MOLES/VOLU ME] IN SERUM OR PLASMA 138 mmol/L 135 - 145 08/20 Specimen Type: SERUM No comment entered. Ordering Provider: AARON CARD Report Released Date/Time: Aug 10, 2023 01:40 PM Reporting Lab: [facility] [address] [address] Performing Lab: [facility] [address] [facility] [address] [place] BASIC METABOLIC PANEL (fasting) POTASSIUM [MOLES/VOLU ME] IN SERUM OR PLASMA 4.3 mmol/L 3.5 - 5.0 08/20 Specimen Type: SERUM No comment entered. Ordering Provider: AARON CARD Report Released Date/Time: Aug 10, 2023 01:40 PM Reporting Lab: [facility]N [address] [address] Performing Lab: [facility] [address] [address] [place] BASIC METABOLIC PANEL (fasting) CHLORIDE [MOLES/VOLU ME] IN SERUM OR PLASMA 103 mmol/L 100 - 110 08/20 Specimen Type: SERUM No comment entered. Ordering Provider: AARON CARD Report Released Date/Time: Aug 10, 2023 01:40 PM Reporting Lab: [facility] [address] [address] Performing Lab: [facility] [address] [address] [place] BASIC METABOLIC PANEL (fasting) CARBON DIOXIDE, TOTAL [MOLES/VOLU ME] IN SERUM OR PLASMA 24 meq/L 20 - 30 08/20 Specimen Type: SERUM No comment entered. Ordering Provider: AARON CARD Report Released Date/Time: Aug 10, 2023 01:40 PM Reporting Lab: [facility]N [address] [address] Performing Lab: [facility] [address] [address] [place] BASIC METABOLIC PANEL (fasting) CREATININE [MASS/VOLUM E] IN SERUM OR PLASMA 1.04 mg/dL 0.50 - 1.40 08/20 Specimen Type: SERUM No comment entered. Ordering Provider: AARON CARD Report Released Date/Time: Aug 10, 2023 01:40 PM Reporting Lab: [facility] [address] [address] Performing Lab: [facility]DRENUSE[address] [address] [place] BASIC METABOLIC PANEL (fasting) GLOMERULAR FILTRATION RATE/1.73 SQ M.PREDICTED [VOLUME RATE/AREA] IN SERUM, PLASMA OR BLOOD BY CREATININE- BASED FORMULA (CKD-EPI 2020) 75 mL/min 60 08/20 Specimen Type: SERUM No comment entered. Ordering Provider: AARON CARD Report Released Date/Time: Aug 10, 2023 01:40 PM Reporting Lab: [facility] [address] [address] Performing Lab: [address] [address] [place] LIVER FUNCTION PROTEIN [MASS/VOLUM E] IN SERUM OR PLASMA 7.1 g/dL 6.0 - 8.3 08/20 Specimen Type: SERUM No comment entered. Ordering Provider: AARON CARD Report Released Date/Time: Aug 10, 2023 01:40 PM Reporting Lab: [facility] [address] [address] Performing Lab: [facility]ILDRENUSE[address] [address] [place] LIVER FUNCTION ALBUMIN [MASS/VOLUM E] IN SERUM OR PLASMA 4.0 g/dL 3.5 - 5.0 08/20 Specimen Type: SERUM No comment entered. Ordering Provider: AARON CARD Report Released Date/Time: Aug 10, 2023 01:40 PM Reporting Lab: [facility] [address] [address] Performing Lab: [facility]ENUSE[address] [address] [place]IVER FUNCTION ALKALINE PHOSPHATASE [ENZYMATIC ACTIVITY/VO LUME] IN SERUM OR PLASMA 49 U/L 40 - 150 08/20 Specimen Type: SERUM No comment entered. Ordering Provider: AARON CARD Report Released Date/Time: Aug 10, 2023 01:40 PM Reporting Lab: [place] [facility] [place] [address] [address] Performing Lab: [facility] [place] [address] [address] [place] LIVER FUNCTION ASPARTATE AMINOTRANSF ERASE [ENZYMATIC ACTIVITY/VO LUME] IN SERUM OR PLASMA 23 U/L 5 - 34 08/20 Specimen Type: SERUM No comment entered. Ordering Provider: AARON CARD Report Released Date/Time: Aug 10, 2023 01:40 PM Reporting Lab: [facility] [place] [address] [address] Performing Lab: [facility] [place] [address] [address] [place] LIVER FUNCTION ALANINE AMINOTRANSF ERASE [ENZYMATIC ACTIVITY/VO LUME] IN SERUM OR PLASMA 24 U/L 08/20 Specimen Type: SERUM No comment entered. Ordering Provider: AARON CARD Report Released Date/Time: Aug 10, 2023 01:40 PM Reporting Lab: [facility] [place] [address] [address] Performing Lab: [facility] [place] [address] [address] [place] LIVER FUNCTION BILIRUBIN.T OTAL [MASS/VOLUM E] IN SERUM OR PLASMA 1.3 mg/dL 0.2 - 1.2 08/20 H Specimen Type: SERUM No comment entered. Ordering Provider: AARON CARD Report Released Date/Time: Aug 10, 2023 01:40 PM Reporting Lab: [facility] [place] [address] [address] Performing Lab: [facility] [place] [address] [address] [place] LIVER FUNCTION BILIRUBIN.D IRECT [MASS/VOLUM E] IN SERUM OR PLASMA 0.4 mg/dL 0 - 0.5 08/20 Specimen Type: SERUM No comment entered. Ordering Provider: AARON CARD Report Released Date/Time: Aug 10, 2023 01:40 PM Reporting Lab: [facility] [place] [facility] [address] [facility] [address] Performing Lab: [facility] [facility] [address] [facility] [address] [facility] Vital Signs Combined list of inpatient and outpatient Vital Signs from Department of Defense and Veterans Affairs, ranging from 12 months to all on record, depending upon the facility. Vital Sign Value Date Comments Source SYSTOLIC BLOOD PRESSURE 136 02/24/2024 09:33:43 [place] DIASTOLIC BLOOD PRESSURE 86 02/24/2024 09:33:43 [place] PULSE OXIMETRY 92 02/24/2024 09:33:43 [place] P[place] 59 02/24/2024 09:33:43 [facility] SYSTOLIC BLOOD PRESSURE 150 08/28/2023 13:09:58 [place] DIASTOLIC BLOOD PRESSURE 87 08/28/2023 13:09:58 [place] PULSE OXIMETRY 97 08/28/2023 13:09:58 [place] PULSE 61 08/28/2023 13:09:58 GET [facility] Encounters Combined list of: 1) Encounters from Department of Veterans Affairs facilities going back up to thelast 18 months. 2) Encounters from the Department of Defense facilities going back up to 280 months. 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
STELEA,CAR MEN F 02/25 [facility] [place] [facility] [facility] Outpatient Encounter [id number] 03/11 [place] [facility] [facility] [place] [facility] Outpatient Encounter [id number] SHELIA REYES 03/12 [facility] [place] [facility] [place] OFF/OP EST MAY X REQ PHY/QHP [id number] Diagnos is: ICD-10- CM I10 Essenti al (primar y) hyperte nsion<b r/> SHELIA REYES 03/25 [place] [facility] Encounter [id number] 03/30 [facility] [place] [facility] [place] En[facility] [id number] 08/19 [facility] [place] [facility] [place] OFFICE O/P EST MOD 30 MIN [id number] Diagnos is: ICD-10- CM E78.5 Hyperli pidemia , unspeci fied
STELEA,CAR MEN F 08/27 [place] [facility] En[facility] [id number] 10/14 [facility] [place] [facility] En[facility] [id number] 11/19 [facility] [place] [facility] [place] Encounter [id number] 02/07 [facility] [place] [facility] [place] OFFICE O/P EST MOD 30 MIN [id number] Diagnos is: ICD-10- CM E78.5 Hyperli pidemia , unspeci fied
STELEA,CAR MEN F 02/23 [place] [facility] Out[facility] Encounter [id number] 04/28 [facility] [place] [facility] Social History Combined list of available smoking, tobacco, and other social history from Department of Defense and Veterans Affairs facilities. Social History Type Response Date Comment Sourc e Tobacco smoking status NHIS VA-TOBACCO NEVER USED 02/24/2024 [facility] D History of tobacco use VA-TOBACCO NEVER USED 02/25/2023 [facility] D History of tobacco use VA-TOBACCO NEVER USED 02/25/2022 [facility] D History of tobacco use WI-TOBACCO NEVER USED 10/30/2020 [facility] [place] [facility] History of tobacco use [place]-TO[place]ACCO NEVER USED 01/28/2018 [facility] History of tobacco use LIFETIME NON-TOBACCO USER 09/14/2017 [place] History of tobacco use LIFETIME NON-TOBACCO USER 05/07/2016 [facility] History of tobacco use QUIT TOBACCO USE > 7 YEARS AGO 04/04/2015 [facility] History of tobacco use LIFETIME NON-TOBACCO USER 01/03/2011 [facility] Plan of Care List of future care activities from Department of Veterans Affairs facilities. Additional future care activities may be listed in the Assessment and Plan section. Date/Time Care Activity Care Activity Detail Facili ty 09/20/2024 AMBULATORY - MEDICINE AM[place]ULATORY [place] [facility] [place] [facility]
--- OUTSIDE RECORDS SUMMARY | 2024-04-28 14:47 | XMS_ITS | Encounter Summary ---
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 Name Role Phone CARLOS MARYELLEN Primary Care [...] Name Patient's Relationship to Policy [facility] Mar 11, 2015 [id number] JEZ GARCIA PATIENT MEDICARE (WNR) MEDICARE (M) PART A Mar 11, 2015 PART A [id number] JEZ GARCIA PATIENT MEDICARE (WNR) MEDICARE (M) PART B Mar 11, 2015 PART B [id number] JEZ GARCIA PATIENT MEDICARE (WNR) MEDICARE (M) PART A Mar 11, 2015 PART A [id number] [phone] [id number] JEZ GARCIA PATIENT MEDICARE (WNR) MEDICARE (M) PART B Mar 11, 2015 PART B [id number] JEZ GARCIA PATIENT Selected Encounter This section includes the information on record at [place] for the Encounter. Date/Time Encounter Type Encounter Description Reason Pro vider Source Apr 28, 2024 11:45 AM Outpatient Encounter TELEPHONE TRIAGE IHE Encounter Template Text not used by [...] Date/Time Appointment Type Appointme nt Facility Name September 20, 2024 03:00 PM AMBULATORY - MEDICINE [facility] [facility] Social History: Smoking Status (Most current) and Tobacco Use (All prior to encounter date) This section includes the most current, and the historical, smoking and tobacco- related health factors from the VA facility where the Encounter took place. Current Smoking Status This section includes the most current smoking, or tobacco-related health factor, from the VA facility where the Encounter took place. Date/Time Current Smoking Status Comment Facil ity Oct 30, 2020 10:49 AM VA-TOBACCO NEVER USED [place] [facility] [place] [facility] Encounter Notes: All associated encounter notes This section contains the clinical notes associated to the Encounter. Date/Time Encounter Note(s) Provider Source Apr 28, 2024 11:45 AM RN PROGRESS NOTE: LOCAL TITLE: CCC: CLINICAL TRIAGE STANDARD TITLE: RN PROGRESS NOTE DATE OF NOTE: APR 28, 2024@11:45:29 ENTRY DATE: APR 28, 2024@11:45:30 AUTHOR: DONG OKEEFE COSIGNER: URGENCY: STATUS: COMPLETED Patient Demographics Patient Name: RC GARCIA Patient Primary Address: [address] [place] [address] Patient Primary Phone: [phone] Patient : 1950 Patient Age: 74 Current Location: [place] Call Back Number: Caller/Recipient Relation to Patient: Self Caller Name: RC GARCIA Emergency Contact: SHREYA MCKINNEY Triage Summary Chief Complaint: Lightheadedness System WHEN: Within 3 Days Nurse's Recommendation / WHEN: Within 8 Hours System WHERE: Clinic Nurse's Recommendation / WHERE: Urgent Non-VA WHEN/WHERE modifier reason: Other Other - Modifiers: severity of symptoms. Vet pref. Nursing Plan and Disposition Referred patient to higher level of care Instructed to go to Urgent Care (UC) Provided location of Urgent Care Center Advised of Financial Disclaimer: Patient advised that recommendation for care provided during the call does not constitute an approval or authorization for payment by the PA or its staff. Patient advised to report a community ED visit to the community healthcare system Office of Community Care at within 72 hours. Advised of [place] Act UC Benefits Other course(s) of action Generated msg to PACT/Provider Provided guidance for worsening symptoms: *Caller/Patient* advised to call facilities [place] Clinical Contact Center or seek immediate medical attention for new or worsening symptoms Nurse Summary Nurse Summary: . calls reporting lightheadedness x 4 hrs. Advised UC within 8 hrs. Provided in network UC options. Advised of [facility] Triage 24.7 availability. verbalizes understanding and agrees with plan. declines VCV and F2F with PCP, stating he prefers to go to UC now. Clinical Contact Center Codes Clinic/Location: V1 CWM PHONE [facility] RN Decision Support System Output: Triage Complete Triage Date: 04/28/2024, 11:40 AM Triage Note: Decision Support Tool Used: [facility] Phone Triage Martha, 28 Apr 2024 16:36:22 +0000 [facility] Demographics 74 y/o Male Results CC: Lightheadedness Software suggested: Within 3 Days Software suggested follow-up location: Clinic, consider [facility] care Values and Measures Duration of CC: 4 Hours Positive Responses HPI: lightheadedness, duration longer than 6 hours HPI: weakness, with lightheadedness, duration longer than 10 minutes MEDS: taking prescription medications daily PMH: hypertension VS: BP not taken VS: pulse not taken Negative Responses Denies: HPI: abdominal pain Denies: HPI: arm or jaw pain with episode of lightheadedness Denies: HPI: chest pain Denies: HPI: diaphoresis with presyncope, duration longer than 10 minutes Denies: HPI: diarrhea Denies: HPI: difficulty walking, new or worsening Denies: HPI: dizziness, triggered by head motion Denies: HPI: dyspnea on exertion, worse than usual during normal activities Denies: HPI: dyspnea, new or worsening Denies: HPI: hematochezia Denies: HPI: lightheadedness and nausea, duration longer than 10 minutes Denies: HPI: lightheadedness, onset after change in medication dose Denies: HPI: lightheadedness, onset after starting antihypertensive medication Denies: HPI: lightheadedness, with anxiety, episodic Denies: HPI: lightheadedness, with diaphoresis, episodic Denies: HPI: lightheadedness, with hunger, episodic Denies: HPI: lightheadedness, with palpitations, episodic Denies: HPI: lightheadedness, with tremor, episodic Denies: HPI: melena Denies: HPI: syncope Denies: HPI: vertigo Denies: HPI: vomiting Denies: PMH: anemia Denies: PMH: diabetes Denies: PMH: heart disease Denies: PMH: hypoglycemia Denies: PMH: stroke or TIA IMPORTANT: This note was created by [facility] Clinical Contact Center staff. Please do not alert the staff member by adding them as a signer for future communications. Alerts are not monitored by this user. /ct/ DONG OKEEFE VISTamara 1 [facility] home care manager Signed: 04/28/2024 11:45 Receipt Acknowledged By: 04/28/2024 14:42 /es/ JAZMYNE GERARDN RN-BC REGISTERED NURSE * AWAITING SIGNATURE * JASPREET [facility]
[2024-04-28 14:51] VITALS: BP 165/98; PULSE 76; RESP 18; TEMP 36; O2SAT 97; BMI 24.1
--- NOTE | 2024-04-28 14:52 | ED.DIZZY ---
HPI - Dizziness General Chief Complaint: Dizziness Stated Complaint: Lightheaded, sent by urgent care Time Seen by Provider: 04/28/24 15:55 Source: patient Mode of arrival: ambulatory Limitations: no limitations History of Present Illness ED Provider: Carisa Marshall NP HPI Narrative: Patient is a 74-year-old male with past medical history of hypertension, hyperlipidemia, diabetes who presents emergency department for evaluation. He reports that he awoke at approximately 06:50 this morning, he was feeling fine as soon as he went to stand up out of bed he was feeling ?groggy and just not right?. He was able to walk to the bathroom but was feeling dizzy described as off balance. He admits that he decided to go back to bed lie down he states that while he was in bed if he was turning his head to either side or moving his head in any way he felt the dizziness sensation to become worse. He felt so off balance when he was walking he felt as if he was going to fall onto the wall. He feels better at rest. He presented to an urgent care this morning, reportedly had EKG changes and concern for left-sided facial droop and he was encouraged to come to the emergency department. He admits that at baseline he has a mild ptosis of the left eye and a lower left eyebrow but he states that this is no different than how he typically appears. He denies any slurred speech, difficulty talking, confusion, associated headache (though he does admit to having chronic headache since a child), numbness or tingling of the extremities, weakness. He denies any history of similar dizziness in the past. Has a history of chronic allergies for which he is taking daily allergy medication, denies any recent URI symptoms or tinnitus. Denies any fevers, chills, falls, head trauma, presyncope, syncope, vision changes, hearing changes, nausea, vomiting, palpitations, shortness of breath, exercise intolerance, pedal edema. Related Data Previous Rx's ?Medication ?Instructions ?Recorded meclizine 25 mg tablet 25 mg PO Q6H PRN dizziness #20 tabs 04/28/24 Allergies Allergy/AdvReac Type Severity Reaction Status Date / Time No Known Allergies Allergy Verified 04/28/24 14:55 Review of Systems Review of Systems: Yes all other systems are reviewed and are negative PMFSH Past Medical History Attestation statement: The following information was validated with the patient. Source: old records reviewed Social History Social History Advance Directives: Yes Advance Directives Information Provided: No Advance Directives on File: No Do you have a plan to hurt others: No Plan Physical Exam Vital Signs: Vital Signs: Last Vital Signs Temp 98.1 F 04/28/24 18:00 Pulse 67 04/28/24 18:00 Resp 14 04/28/24 18:00 BP 141/84 H 04/28/24 18:00 Pulse Ox 95 04/28/24 18:00 O2 Del Method Room Air 04/28/24 18:00 BMI result Body Mass Index 24.1 Appearance: Alert.?Oriented to person, place and time. No acute distress.?Normal affect. Head: Normocephalic, atraumatic. No head, sinus or TMJ tenderness.? Eyes: Sclera white, conjunctiva pink. PERRL, 3 mm bilaterally. Visual elam full to confrontation, EOMi.?No Nystagmus. Chronic minimal ptosis of the left upper eyelid. Ears: Bilateral ear canals clear, TM visible with good cone of light.? Nose: Nasal mucosa pink and moist with midline septum, nares patent bilaterally.? Mouth/ Throat: Oral mucosa pink and moist without lesions. Pharynx normal Neck: Normal inspection.? Neck supple.?? CVS: Heart sounds normal. Normal heart rate and rhythm.? Pulses normal.?? Respiratory: No respiratory distress.? Lung sounds clear to auscultation bilaterally?? Abdomen: Soft and non-tender. Normoactive bowel sounds. No pulsatile mass.?? Skin: Skin warm and dry.? Normal skin color.? Normal skin turgor.?? Extremities: No lower extremity edema. Neuro: No focal neurological deficit observed, CN II-XII intact, normal sensory observed, normal coordination observed. Level of consciousness: Appropriate for age. Motor strength: right upper extremity 5 /5, left upper extremity 5 /5, right lower extremity 5 /5, left lower extremity 5 /5.?Speech: Normal, Gait: Normal, Fbqmtv-[id number] test: Normal, Dgiy-bs-oyru test: Normal. Ambulates with normal steady gait. NIH Stroke Scale Internal: Initial- Upon Arrival Time: 16:20 Level of Consciousness: Alert Level of Consciousness Questions: Answers both questions correctly Level of Consciousness Commands: Performs both tasks correctly Best Gaze: Normal Visual: No visual loss Facial Palsy: Normal Motor Arm (Right): No drift Motor Arm (Left): No drift Motor Leg (Right): No drift Motor Leg (Left): No drift Limb Ataxia: Absent Sensory: Normal Best Language: No aphasia Dysarthia: Normal Extinction and Inattention: No abnormality Score: 0 Course Course Course Narrative: This is a Rapid Medical Examination (RME) performed by Rob Vargas PA-C in triage. Full HPI, ROS, assessment and treatment plan per primary provider in the Main ED. 74 y/o male with history of HTN, HLD, DM, UTI who presents to the ER for evaluation of intermittent lightheadedness and dizziness that started this morning when he woke up at 0650 this morning. he felt like he was going to fall into the wall. symptoms resolve with rest and are worse with movement and standing. went to this morning where he was found to have EKG changes and left sided facial droop. he left there AMA and was encouraged to come to the ER for further evaluation. difficulty getting a BP in triage. neurologically grossly intact. no facial droop apprecaited. speech is normal. Plan: EKG, labs, orthostatics Reevaluation(s) Reevaluation #1: CT of the head without evidence of acute intracranial pathology, monitor underlying maker angio but the congenitally cerebral volume loss consistent with likely age related changes. He reports feeling significantly improved after taking the meclizine. He is able to turn in the in the room without having any episodes of the dizziness. He is able to get out of bed and ambulate up and down the white without any dizziness. Suspect this is most consistent with BPPV, will discharge with a prescription for meclizine he is requesting a paper script to bring to the [place] pharmacy as he finds that is often delays with the electronic sending, discussed strict return precautions. All questions answered. Stable for discharge Time: 18:30 Medications Administered Discontinued Medications Generic Name Dose Route Start Last Admin Trade Name Freq PRN Reason Stop Dose Admin Meclizine HCl 25 mg 04/28/24 16:24 04/28/24 16:29 Meclizine Hcl 25 Mg Tablet PO 04/28/24 16:25 25 mg ONCE ONE Administration Medical Decision Making Medical Decision Making MDM Narrative: Patient is a 74-year-old male with past medical history of hypertension, hyperlipidemia, diabetes who presents emergency department for evaluation of dizziness that is exacerbated with position change in head movement as per HPI. On evaluation neurological exam with no abnormal findings, no focal neuro deficits, no spontaneous or gaze evoked nystagmus, no ataxia, no diplopia, dysarthria, dysphagia, dysphonia, dysmetria. Will obtain CBC to evaluate for leukocytosis/ anemia, CMP to evaluate for abnormal electrolytes /abnormal renal function/ abnormal hepatic function, EKG and troponin to evaluate for ischemia/ACS. Given the sudden onset of dizziness, severe intensity, episodic nature, I suspect that this is most consistent with BPPV as it is triggered with certain head movements eliciting dizziness. He has bilateral otitis media effusions likely secondary to his chronic allergies though no evidence of acute otitis media. Given his age, plan to obtain CT of the head to exclude acute intracranial pathology, will trial meclizine as well. Orthostatic vital signs are negative. I have a low suspicion that this is a cerebellar stroke as his cerebellar function is normal and testing and he is ambulatory with a steady gait. Differential Diagnosis Differential Diagnoses: The differential diagnosis associated with the presentation includes (See narrative above) Admission/Observation Consideration of admission/observation: Escalation of care including admission/observation considered Lab Data MDM Lab Attestation statement: I reviewed the patient's lab results. CBC is without leukocytosis or anemia, has a mild thrombocytopenia. No electrolyte derangement. No DINA. Urinalysis without compelling evidence of infection. High sensitive troponin within normal range. 04/28/24 15:13 04/28/24 15:13 Labs: Lab Results 04/28/24 04/28/24 Range/Units 15:13 15:15 WBC 5.5 (4.8-10.8) X10*3/uL RBC 4.97 (4.60-5.80) X10*6/uL Hgb 15.4 (14.0-18.0) g/dl Hct 44.4 (42.0-52.0) % MCV 89.3 (80.0-98.0) fL MCH 31.0 (27.0-33.0) pg MCHC 34.7 (31.0-36.0) g/dl RDW 13.2 (11.0-16.0) % Plt Count 141 L (160-400) X10*3/uL MPV 9.7 (9.4-12.4) fL Immature Gran % (Auto) 0.2 (0.0-0.4) % Neut % (Auto) 60.3 (45-73) % Lymph % (Auto) 20.0 (20-40) % Rincon % (Auto) 11.1 H (2-11) % Eos % (Auto) 7.5 H (0-4) % Baso % (Auto) 0.9 (0-2) % Lymph # (Auto) 1.1 L (1.2-4.9) X10*3/uL Rincon # (Auto) 0.6 (0.1-1.2) X10*3/uL Eos # (Auto) 0.4 (0.0-0.4) X10*3/uL Baso # (Auto) 0.1 (0.0-0.2) X10*3/uL Abs Immat Gran (auto) 0.01 (0.00-0.03) X10*3/uL Absolute Neuts (auto) 3.3 (2.0-8.3) x10*3/uL Absolute Nucleated RBC 0.000 (0.0-0.012) X10*3/uL Nucleated RBC % (auto) 0.0 (0.0-0.2) /100WBC Sodium 141 (135-145) mmol/L Potassium 4.4 (3.3-5.1) mmol/L Chloride 105 (96-108) mmol/L Carbon Dioxide 27 (22-29) mmol/L Anion Gap 13 (12-20) BUN 18 H (9-16) mg/dL Creatinine 0.88 (0.5-1.4) mg/dL Estim Creat Clear Calc 61.6 Estimated GFR > 60 Random Glucose 127 H (60-115) mg/dL Calcium 10.4 H (8.4-10.2) mg/dL Magnesium 2.2 (1.6-2.6) mg/dL Total Bilirubin 1.1 H (0.0-1.0) mg/dL Direct Bilirubin 0.2 (0.0-0.5) mg/dL AST 32 (5-37) U/L ALT 33 (0-40) U/L Alkaline Phosphatase 40 (39-117) U/L Troponin I High Sens 3.0 (<3.5-35.0) ng/L Total Protein 7.6 (6.5-8.0) g/dL Albumin 4.5 (3.5-5.0) g/dL Urine Color Yellow Urine Appearance Clear Urine pH 6.0 (5.0-9.0) Ur Specific Caspian 1.010 (1.005-1.025) Urine Protein 30 (1+) H (Neg-Trace) mg/dL Urine Glucose (UA) Negative (Negative) mg/dL Urine Ketones Negative (Negative) mg/dL Urine Blood Small (1+) H (Negative) Urine Nitrite Negative (Negative) Ur Leukocyte Esterase Small (1+) H (Negative) Urine RBC 0-2 (0-2) /HPF Urine WBC 0-5 (0-5) /HPF Ur Squamous Epith Cells 0-2 (0-2) /HPF Urine Bacteria None Seen (None Seen) Hyaline Casts 0-2 (0-2) /LPF Independent Interpretation I performed an independent interpretation of an: EKG Interpretation: Rate: Sixty-seven Rhythm:? Normal sinus rhythm Normal P waves.? Normal MARCELLA.?? Normal QRS complex.?? ST T wave :??No ST elevation, no ST depression qTC: 405 The study has been interpreted contemporaneously by me. Radiology Impression Discussion of test interpretation with radiology: I have reviewed the radiologist's reading. Radiologist Impression: CT/CT head/brain wo IV con IMPRESSION: 1. No evidence of acute intracranial hemorrhage or edematous territorial infarction. 2. 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 External Record Review External record reviewed: Outpatient record Chronic Conditions Patient?s care impacted by: Other (See narrative above) Discharge Plan Discharge Clinical Impression: Benign paroxysmal positional vertigo Patient Disposition: Home, Self-Care Instructions: Benign Paroxysmal Positional Vertigo (ED) Additional Instructions: Take meclizine as needed for dizziness as described. Follow-up with your primary care doctor. Return to emergency department any new or worsening symptoms or concerns which includes but is not limited to worsening dizziness, lightheadedness, near passing out or passing out, severe headache, nausea, vomiting, numbness or tingling of the extremities, facial drooping, slurred speech, confusion, difficulty walking. Prescriptions: New meclizine 25 mg tablet 25 mg PO Q6H PRN (Reason: dizziness) Qty: 20 0RF Referrals: Loli Castellanos MD [Primary Care Provider] - Print Language: Citizen Of [place]
--- NOTE | 2024-04-28 14:55 | ECG_ITS ---
Test Reason : chest pain Blood Pressure : / mmHG Vent. Rate : 067 BPM Atrial Rate : 067 BPM P-R Int : 204 ms QRS Dur : 106 ms QT Int : 384 ms P-R-T Axes : 046 -24 017 degrees QTc Int : 405 ms Normal sinus rhythm Normal ECG When compared with ECG of 10-AUG-2009 21:46, Premature supraventricular complexes are no longer Present QT has shortened Referred By: Mehnaz Vargas Electronically Signed By:POPEYE CHRISTENSEN
[2024-04-28 15:19] LABS: MANUAL DIFF FLAG NO
[2024-04-28 15:23] LABS: Appearance Urine Clear; Color Urine Yellow; Glucose Urine UA Negative (Negative); Leukocyte Esterase Urine Small (1+) (Negative); Nitrite Urine Negative (Negative); UMIC TRIGGER UACC YES; Urine Blood Small (1+) (Negative); Urine Ketones Negative (Negative); Urine Protein 30 (1+) mg/dL (Neg-Trace)
[2024-04-28 15:28] LABS: Basophils Absolute Auto 0.1 X10*3/uL (0.0-0.2); Basophils Percent Auto 0.9 % (0-2); Eosinophils Absolute Auto 0.4 X10*3/uL (0.0-0.4); Eosinophils Percent Auto 7.5 % (0-4); Hematocrit 44.4 % (42.0-52.0); Hemoglobin 15.4 g/dl (14.0-18.0); Imm Gran Abs Auto 0.01 X10*3/uL (0.00-0.03); Imm Gran Pct Auto 0.2 % (0.0-0.4); Lymphocytes Absolute Auto 1.1 X10*3/uL (1.2-4.9); Mean Corpuscular HGB Conc 34.7 g/dl (31.0-36.0); Mean Corpuscular Volume 89.3 fL (80.0-98.0); Mean Platelet Volume 9.7 fL (9.4-12.4); Monocytes Absolute Auto 0.6 X10*3/uL (0.1-1.2); Monocytes Percent Auto 11.1 % (2-11); Neutrophils Absolute Auto 3.3 x10*3/uL (2.0-8.3); Neutrophils Percent Auto 60.3 % (45-73); Platelet Count 141 X10*3/uL (160-400); Red Blood Count 4.97 X10*6/uL (4.60-5.80); Red Cell Distribution Width 13.2 % (11.0-16.0); White Blood Count 5.5 X10*3/uL (4.8-10.8)
[2024-04-28 15:32] VITALS: BP 166/97; BP 173/91; PULSE 67; PULSE 69
[2024-04-28 15:33] VITALS: BP 153/100; BP 166/97; PULSE 67; PULSE 70; RESP 15; TEMP 36.6; O2SAT 96
[2024-04-28 15:36] LABS: Albumin Level 4.5 g/dL (3.5-5.0); Anion Gap 13 (12-20); Aspartate Amino Transferase 32 U/L (5-37); Bilirubin Direct 0.2 mg/dL (0.0-0.5); Bilirubin Total 1.1 mg/dL (0.0-1.0); Blood Urea Nitrogen 18 mg/dL (9-16); Calcium 10.4 mg/dL (8.4-10.2); Carbon Dioxide 27 mmol/L (22-29); Chloride 105 mmol/L (96-108); Creatinine Clr Calc Pharmacy 61.6; Estimated Glomerular Filt Rate > 60; Glucose Random 127 mg/dL (60-115); Magnesium 2.2 mg/dL (1.6-2.6); Potassium 4.4 mmol/L (3.3-5.1); Sodium 141 mmol/L (135-145); Total Protein 7.6 g/dL (6.5-8.0)
[2024-04-28 15:37] LABS: Bacteria Urine None Seen (None Seen); Hyaline Casts Urine 0-2 /LPF (0-2); RBC Urine 0-2 /HPF (0-2); Squamous Epithelial Cell Urine 0-2 /HPF (0-2); UACC Culture Trigger YES; WBC Urine 0-5 /HPF (0-5)
[2024-04-28 15:58] LABS: Alanine Aminotransferase 33 U/L (0-40); Alkaline Phosphatase 40 U/L (39-117)
[2024-04-28] MEDS: Meclizine HCl 25 MG TABLET PO (16:29)
--- NOTE | 2024-04-28 16:43 | PC.NURSE ---
pt medicated per [facility]
[2024-04-28 18:00] VITALS: BP 141/84; PULSE 67; RESP 14; TEMP 36.7; O2SAT 95
--- OUTSIDE RECORDS SUMMARY | 2024-04-28 18:49 | XMS_ITS | Continuity of Care Document ---
Author Name [facility] Organization [facility] Care Team Providers Care Cover Remover Name Role Phone [facility] Unavailable Unavailable Problems Combined list of problems from Department of Defense and Veterans Affairs facilities. It does not include entries that were removed or entered in error. Problem Status Onset Date Problem Type Date of Resolution Comments Source Diabetes Mellitus Type 2 (SCT 18054755) Active Condition [facility] Essential hypertension (SNOMED CT 71059485) Active Condition [facility] Gastric Ulcer (ICD-9-CM 531.90) Active Condition Jul 15 Entered By: MISTY FERRELL Comment: 08/2009 [facility] Headache Active Condition [facility] history of bleeding gastric ulcer Active Condition [facility] History of colonoscopy Active Condition Aug 26, 2022 Entered By: KAREN CARD Comment: Colonoscopy [facility] 2009 F/U in 10 yrs [facility] Hypercalcemia Active Condition Feb Entered By: MISTY FERRELL Comment: 2015 mild. elev. 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 2 diabetes mellitus Active Condition [facility] IELD Migraine Active Condition [facility] Migraine, unspecified, without mention of Intractable Migraine without mention o Active Condition [facility] Rhinitis Active Condition [facility] Skin tag Active Condition [facility] Diagnosis: ICD-10-CM E78.5 Hyperlipidemia, unspecified Active Diagnosis [facility] Diagnosis: ICD-10-CM I10 Essential (primary) hypertension Active Diagnosis [facility] Diagnosis: ICD-10-CM L91.8 Other hypertrophic disorders of the skin Active Diagnosis [facility] Medications Combined list of outpatient medications from [...] WITH GRAPEFRU IT JUICE ORAL ACTIVE 02/24/2025 [id number] 4 PEDRITO CARD [facility] F 2023 90 [place] AMLODIPINE BESYLATE 2.5MG TAB TAKE ONE TABLET BY MOUTH ONCE DAILY FOR BLOOD PRESSURE /HEART, DO NOT TAKE WITH GRAPEFRU IT JUICE ORAL DISCONT INUED 03/30/2024 [id number] PEDRITO CARD HARIS 2022 90 [place] CHOLECALCIF ENID 25MCG (1,000UNIT) TAB TAKE ONE TABLET BY MOUTH ONCE DAILY ORAL ACTIVE PEDRITO CARD [facility] F 2022 [place] LOSARTAN POTASSIUM 100MG TAB TAKE ONE TABLET BY MOUTH ONCE DAILY FOR BLOOD PRESSURE /HEART - THIS REPLACES LISINOPR [place] ORAL ACTIVE 02/24/2025 [id number] 4 PEDRITO CARD [facility] F 2023 90 [place] POTASSIUM 100MG TAB TAKE ONE TABLET BY MOUTH ONCE DAILY FOR BLOOD PRESSURE /HEART - THIS REPLACES LISINOPR [place] ORAL DISCONT INUED 2024 [id number] 4 PEDRITO CARD [facility] F 2022 90 [place] METFORMIN HCL 500MG TAB TAKE ONE TABLET BY MOUTH AT BEDTIME FOR DIABETES ORAL ACTIVE 05/24/2024 [id number] 4 PEDRITO CARD [facility] F 2023 90 [place] METFORMIN HCL 500MG TAB TAKE ONE TABLET BY MOUTH AT BEDTIME FOR DIABETES ORAL DISCONT INUED 08/28/2024 [id number] 4 [facility] 90 [place] METFORMIN HCL 500MG TAB TAKE ONE TABLET BY MOUTH AT BEDTIME FOR DIABETES ORAL DISCONT INUED 08/27/2023 [id number] 4 ELYSEALBERPEDRITO [place] HARIS F 2022 90 [place] OMEPRAZOLE 20MG CAP,EC TAKE ONE CAPSULE BY MOUTH DAILY ORAL ACTIVE 11/24/2024 [id number] 4 PEDRITO CARD RMEN F 2023 90 [place] OMEPRAZOLE 20MG CAP,EC TAKE ONE CAPSULE BY MOUTH DAILY ORAL DISCONT INUED 10/10/2023 [id number] 4 PEDRITO CARD [facility] F 2022 90 [place] PROPRANOLOL HCL 120MG CAP,SA TAKE ONE CAPSULE BY MOUTH TWICE DAILY ORAL ACTIVE 10/22/2024 [id number] 4 PEDRITO CARD [facility] F 2023 180 [place] PROPRANOLOL HCL 120MG CAP,SA TAKE ONE CAPSULE BY MOUTH TWICE DAILY ORAL DISCONT INUED 08/27/2023 [id number] 4 PEDRITO CARD RM[facility] F 2022 180 [place] ROSUVASTATI N CA 40MG TAB TAKE ONE-HALF TABLET BY MOUTH AT BEDTIME FOR CHOLESTE ROL ORAL ACTIVE 02/24/2025 [id number] 4 PEDRITO CADR RMEN F 2023 45 [place] ROSUVASTATI N CA 40MG TAB TAKE ONE-HALF TABLET BY MOUTH AT BEDTIME FOR CHOLESTE ROL - THIS REPLACES ATORVAST ATIN ORAL DISCONT INUED 03/04/2024 [id number] 4 PEDRITO CARD RMEN F 2022 45 [place] SUMATRIPTAN SUCCINATE 25MG TAB TAKE ONE TABLET BY MOUTH DIRECTED AT ONSET OF HEADACHE ; MAY REPEAT IN 2 HOURS IF FIRST DOSE IS NOT EFFECTIV E ORAL ACTIVE 02/24/2025 [id number] 4 PEDRITO CARD RMEN F 2023 9 [place] SUMATRIPTAN SUCCINATE 25MG TAB TAKE ONE TABLET BY MOUTH DIRECTED AT ONSET OF HEADACHE ; MAY REPEAT IN 2 HOURS IF FIRST DOSE IS NOT EFFECTIV E ORAL DISCONT INUED 08/28/2024 [id number] 4 PEDRITO CARD RMEN F 2023 9 [place] SUMATRIPTAN SUCCINATE 25MG TAB TAKE ONE TABLET BY MOUTH DIRECTED AT ONSET OF HEADACHE ; MAY REPEAT IN 2 HOURS IF FIRST DOSE IS NOT EFFECTIV E ORAL DISCONT INUED 08/27/2023 [id number] 4 STEPHIEPEDRITO SABAS F 2022 9 [facility] IELD TRIAMCINOLO NE ACETONIDE 0.5% CREAM,TOP APPLY A SMALL AMOUNT TOPICALL Y ONCE DAILY NEEDED FOR ITCHING TOPICA L ACTIVE 02/24/2025 [id number] ARNOLDOLuis DanielPEDRITO SABAS F 2023 60 [place] Immunizations Combined list of available immunizations from the Department of Defense and Veterans Affairs facilities. Immunization Series Date Given Administered By Site Reaction Lot Number CVX Code Drug Vest Tailor Status Comments Source INFLUENZA, HIGH-DOSE, TRIVALENT, PF 2023 JASPREET COX LEFT DELTO ID [id number] 135 complet ed [place] INFLUENZA, HIGH-DOSE, QUADRIVALENT 2022 JASPREET [facility] LEFT DELTO ID [id number] 197 complet ed [place] INFLUENZA VACCINE, QUADRIVALENT, ADJUVANTED 2021 205 complet ed [place] COVID-19 (MODERNA), MRNA, LNP-S, PF, 100 MCG/0.5ML DOSE OR 50 MCG/0.25ML DOSE 4 2021 207 complet ed MOD; [id number]; 2 [place] COVID-19 (MODERNA), MRNA, LNP-S, [...] DOSE 2 2020 207 complet ed MOD; [id number]; 1 [place] COVID-19 (MODERNA), MRNA, LNP-S, PF, 100 MCG/0.5 ML DOSE 1 2020 207 complet ed MOD; [id number]; 1 [place] INFLUENZA, INJECTABLE, QUADRIVALENT, PRESERVATIVE [...] Reference Range Date Interpretation Specimen Comments Source BASIC METABOLIC PANEL (fasting) UREA NITROGEN [MASS/VOLUM E] IN SERUM OR PLASMA 22 mg/dL 7 - 25 02/15 Specimen Type: SERUM No comment entered. Ordering Provider: AARON CARD F Report Released Date/Time: Feb 12, 2024 04:13 PM Reporting Lab: [facility] [address] [facility] [address] Performing Lab: [facility] [address] [address] [place] BASIC METABOLIC PANEL (fasting) GLUCOSE [MASS/VOLUM E] IN SERUM OR PLASMA 110 mg/dL 65 - 100 02/15 H Specimen Type: SERUM No comment entered. Ordering Provider: AARON CARD Report Released Date/Time: Feb 12, 2024 04:13 PM Reporting Lab: [address] [address] Performing Lab: [address] [address] [place] BASIC METABOLIC PANEL (fasting) SODIUM [MOLES/VOLU ME] IN SERUM OR PLASMA 135 mmol/L 135 - 145 02/15 Specimen Type: SERUM No comment entered. Ordering Provider: AARON CARD Report Released Date/Time: Feb 12, 2024 04:13 PM Reporting Lab: [address] [address] Performing Lab: [facility] [address] [address] [place] BASIC METABOLIC PANEL (fasting) POTASSIUM [MOLES/VOLU ME] IN SERUM OR PLASMA 4.5 mmol/L 3.5 - 5.0 02/15 Specimen Type: SERUM No comment entered. Ordering Provider: AARON CARD Report Released Date/Time: Feb 12, 2024 04:13 PM Reporting Lab: [facility] [address] [address] Performing Lab: [facility] [address] [address] [place] BASIC METABOLIC PANEL (fasting) CHLORIDE [MOLES/VOLU ME] IN SERUM OR PLASMA 102 mmol/L 100 - 110 02/15 Specimen Type: SERUM No comment entered. Ordering Provider: AARON CARD Report Released Date/Time: Feb 12, 2024 04:13 PM Reporting Lab: [facility] [address] [address] Performing Lab: [facility] [address] [address] [place] BASIC METABOLIC PANEL (fasting) CARBON DIOXIDE, TOTAL [MOLES/VOLU ME] IN SERUM OR PLASMA 24 meq/L 20 - 30 02/15 Specimen Type: SERUM No comment entered. Ordering Provider: AARON CARD Report Released Date/Time: Feb 12, 2024 04:13 PM Reporting Lab: [address] [address] Performing Lab: [facility] [address] [address] [place] BASIC METABOLIC PANEL (fasting) CREATININE [MASS/VOLUM E] IN SERUM OR PLASMA 1.06 mg/dL 0.50 - 1.40 02/15 Specimen Type: SERUM No comment entered. Ordering Provider: AARON CARD Report Released Date/Time: Feb 12, 2024 04:13 PM Reporting Lab: [address] [address] Performing Lab: [facility] [address] [address] [place] BASIC METABOLIC PANEL (fasting) GLOMERULAR FILTRATION RATE/1.73 SQ M.PREDICTED [VOLUME RATE/AREA] IN SERUM, PLASMA OR BLOOD BY CREATININE- BASED FORMULA (CKD-EPI 2020) 74 mL/min 60 02/15 Specimen Type: SERUM No comment entered. Ordering Provider: ARAON CARD Report Released Date/Time: Feb 12, 2024 04:13 PM Reporting Lab: [facility] [address] [address] Performing Lab: [facility] [address] [address] [place] CBC AND DIFF (AUTO) LEUKOCYTES [#/VOLUME] IN BLOOD BY AUTOMATED COUNT 4.58 10*3/u L 4.50 - 11.00 02/15 Specimen Type: BLOOD No comment entered. Ordering Provider: AARON CARD Report Released Date/Time: Feb 12, 2024 04:13 PM Reporting Lab: [facility] [address] [address] Performing Lab: [address] [address] [place] CBC AND DIFF (AUTO) ERYTHROCYTE S [#/VOLUME] IN BLOOD BY AUTOMATED COUNT 4.78 10*6/u L 4.23 - 5.66 02/15 Specimen Type: BLOOD No comment entered. Ordering Provider: AARON CARD Report Released Date/Time: Feb 12, 2024 04:13 PM Reporting Lab: [facility] [address] [address] Performing Lab: [address] [address] [place] CBC AND DIFF (AUTO) HEMOGLOBIN [MASS/VOLUM E] IN BLOOD 14.6 g/dL 12.8 - 17 02/15 Specimen Type: BLOOD No comment entered. Ordering Provider: AARON CARD Report Released Date/Time: Feb 12, 2024 04:13 PM Reporting Lab: [address] [address] Performing Lab: [address] [address] [place] CBC AND DIFF (AUTO) HEMATOCRIT [VOLUME FRACTION] OF BLOOD BY AUTOMATED COUNT 42.6 39.2 - 50.4 02/15 Specimen Type: BLOOD No comment entered. Ordering Provider: AARON CARD Report Released Date/Time: Feb 12, 2024 04:13 PM Reporting Lab: [facility] [address] [address] Performing Lab: [facility] [address] [address] [place] CBC AND DIFF (AUTO) MCV [ENTITIC VOLUME] BY AUTOMATED COUNT 89.1 fL 82 - 99 02/15 Specimen Type: BLOOD No comment entered. Ordering Provider: AARON CARD Report Released Date/Time: Feb 12, 2024 04:13 PM Reporting Lab: [facility] [address] [address] Performing Lab: [facility] [address] [address] [place] CBC AND DIFF (AUTO) MCHC [MASS/VOLUM E] BY AUTOMATED COUNT 34.3 g/dL 30.8 - 35.1 02/15 Specimen Type: BLOOD No comment entered. Ordering Provider: AARON CARD Report Released Date/Time: Feb 12, 2024 04:13 PM Reporting Lab: [facility] [address] [address] Performing Lab: [facility] [address] [address] [place] CBC AND DIFF (AUTO) PLATELETS [#/VOLUME] IN BLOOD BY AUTOMATED COUNT 159 10*3/u L 140 - 360 02/15 Specimen Type: BLOOD No comment entered. Ordering Provider: AARON CARD Report Released Date/Time: Feb 12, 2024 04:13 PM Reporting Lab: [facility] [address] [address] Performing Lab: [facility] [address] [address] [place] CBC AND DIFF (AUTO) ERYTHROCYTE DISTRIBUTIO N WIDTH [RATIO] BY AUTOMATED COUNT 13.1 12.0 - 16.0 02/15 Specimen Type: BLOOD No comment entered. Ordering Provider: AARON CARD Report Released Date/Time: Feb 12, 2024 04:13 PM Reporting Lab: [facility] [address] [address] Performing Lab: [facility] [address] [address] [place] CBC AND DIFF (AUTO) MONOCYTES [#/VOLUME] IN BLOOD BY AUTOMATED COUNT 0.53 10*3/u L 0.30 - 1.10 02/15 Specimen Type: BLOOD No comment entered. Ordering Provider: AARON CARD Report Released Date/Time: Feb 12, 2024 04:13 PM Reporting Lab: [facility] [place] [address] [address] Performing Lab: [facility] [place] [address] [address] [place] CBC AND DIFF (AUTO) MCH [ENTITIC MASS] BY AUTOMATED COUNT 30.5 pg 26.2 - 32.6 02/15 Specimen Type: BLOOD No comment entered. Ordering Provider: AARON CARD Report Released Date/Time: Feb 12, 2024 04:13 PM Reporting Lab: [facility] [address] [address] Performing Lab: [facility] [address] [address] [place] CBC AND DIFF (AUTO) NEUTROPHILS /100 LEUKOCYTES IN BLOOD BY AUTOMATED COUNT 54.6 43.7 - 75.8 02/15 Specimen Type: BLOOD No comment entered. Ordering Provider: AARON CARD Report Released Date/Time: Feb 12, 2024 04:13 PM Reporting Lab: [facility] [address] Performing Lab: [facility] [place] [address] [address] [place] CBC AND DIFF (AUTO) LYMPHOCYTES /100 LEUKOCYTES IN BLOOD BY AUTOMATED COUNT 23.8 14.0 - 42.3 02/15 Specimen Type: BLOOD No comment entered. Ordering Provider: AARON CARD Report Released Date/Time: Feb 12, 2024 04:13 PM Reporting Lab: [facility] [place] [address] [address] Performing Lab: [facility] [address] [address] [place] CBC AND DIFF (AUTO) MONOCYTES/1 00 LEUKOCYTES IN BLOOD BY AUTOMATED COUNT 11.6 5.1 - 13.7 02/15 Specimen Type: BLOOD No comment entered. Ordering Provider: AARON CARD Report Released Date/Time: Feb 12, 2024 04:13 PM Reporting Lab: [facility] [address] [facility] [address] Performing Lab: [facility] [address] [address] [place] CBC AND DIFF (AUTO) EOSINOPHILS /100 LEUKOCYTES IN BLOOD BY AUTOMATED COUNT 8.7 0.4 - 6.8 02/15 H Specimen Type: BLOOD No comment entered. Ordering Provider: AARON CARD Report Released Date/Time: Feb 12, 2024 04:13 PM Reporting Lab: [facility] [address] [address] Performing Lab: [facility] [address] [address] [place] CBC AND DIFF (AUTO) BASOPHILS/1 00 LEUKOCYTES IN BLOOD BY AUTOMATED COUNT 1.1 0.1 - 2.0 02/15 Specimen Type: BLOOD No comment entered. Ordering Provider: AARON CARD Report Released Date/Time: Feb 12, 2024 04:13 PM Reporting Lab: [facility] [address] [address] Performing Lab: [facility] [address] [place] CBC AND DIFF (AUTO) NEUTROPHILS [#/VOLUME] IN BLOOD BY AUTOMATED COUNT 2.50 10*3/u L 2.20 - 7.60 02/15 Specimen Type: BLOOD No comment entered. Ordering Provider: AARON CARD Report Released Date/Time: Feb 12, 2024 04:13 PM Reporting Lab: [facility] [address] [address] Performing Lab: [facility] [address] [address] [place] CBC AND DIFF (AUTO) LYMPHOCYTES [#/VOLUME] IN BLOOD BY AUTOMATED COUNT 1.09 10*3/u L 1.00 - 3.20 02/15 Specimen Type: BLOOD No comment entered. Ordering Provider: AARON CARD Report Released Date/Time: Feb 12, 2024 04:13 PM Reporting Lab: [facility] [address] [address] Performing Lab: [facility] [address] [address] [place] CBC AND DIFF (AUTO) EOSINOPHILS [#/VOLUME] IN BLOOD BY AUTOMATED COUNT 0.40 10*3/u L 0.03 - 0.44 02/15 Specimen Type: BLOOD No comment entered. Ordering Provider: AARON CARD Report Released Date/Time: Feb 12, 2024 04:13 PM Reporting Lab: [facility] [address] [address] Performing Lab: [facility] [address] [place] CBC AND DIFF (AUTO) BASOPHILS [#/VOLUME] IN BLOOD BY AUTOMATED COUNT 0.05 10*3/u L 0.01 - 0.13 02/15 Specimen Type: BLOOD No comment entered. Ordering Provider: AARON CARD Report Released Date/Time: Feb 12, 2024 04:13 PM Reporting Lab: [facility] [address] [address] Performing Lab: [facility] [address] [address] [place] CBC AND DIFF (AUTO) IMMATURE GRANULOCYTE S/100 LEUKOCYTES IN BLOOD BY AUTOMATED COUNT 0.2 0.0 - 0.7 02/15 Specimen Type: BLOOD No comment entered. Ordering Provider: AARON CARD Report Released Date/Time: Feb 12, 2024 04:13 PM Reporting Lab: [facility] [address] Performing Lab: [facility] [address] [place] CBC AND DIFF (AUTO) IMMATURE GRANULOCYTE S [#/VOLUME] IN BLOOD 0.01 10*3/u L 0.00 - 0.06 02/15 Specimen Type: BLOOD No comment entered. Ordering Provider: AARON CARD Report Released Date/Time: Feb 12, 2024 04:13 PM Reporting Lab: [address] [address] Performing Lab: [address] [address] [place] CBC AND DIFF (AUTO) NRBC % 0.0 0.0 - 0.0 02/15 Specimen Type: BLOOD No comment entered. Ordering Provider: AARON CARD Report Released Date/Time: Feb 12, 2024 04:13 PM Reporting Lab: [address] [address] Performing Lab: [address] [address] [place] CBC AND DIFF (AUTO) NRBC, ABS 0.00 10*3/u L 0.00 - 0.00 02/15 Specimen Type: BLOOD No comment entered. Ordering Provider: AARON CARD Report Released Date/Time: Feb 12, 2024 04:13 PM Reporting Lab: [address] [address] Performing Lab: [address] [address] [employer] [place] HEMOGLOBI N A1C PANEL HEMOGLOBIN A1C/HEMOGLO [...] Feb 12, 2024 04:13 PM Reporting Lab: [facility] [address] [address] Performing Lab: [facility] [address] [address] [place] LIPID PANEL FASTING CHOLESTEROL [MASS/VOLUM E] IN SERUM OR PLASMA 183 mg/dL 02/15 Specimen Type: SERUM No comment entered. Ordering Provider: AARON CARD Report Released Date/Time: Feb 12, 2024 04:13 PM Reporting Lab: [address] [address] Performing Lab: [address] [address] [place] LIPID PANEL FASTING TRIGLYCERID E [MASS/VOLUM E] IN SERUM OR PLASMA 269 mg/dL 0 - 150 02/15 H Specimen Type: SERUM No comment entered. Ordering Provider: AARON CARD Report Released Date/Time: Feb 12, 2024 04:13 PM Reporting Lab: [address] [address] Performing Lab: [address] [address] [place] LIPID PANEL FASTING CHOLESTEROL IN LDL [MASS/VOLUM E] IN SERUM OR PLASMA BY CALCULATION 83 mg/dL 0 - 129 02/15 Specimen Type: SERUM No comment entered. Ordering Provider: AARON CARD Report Released Date/Time: Feb 12, 2024 04:13 PM Reporting Lab: [address] [address] Performing Lab: [address] [address] [place] LIPID PANEL FASTING CHOLESTEROL .TOTAL/CHOL ESTEROL IN HDL [MASS RATIO] IN SERUM OR PLASMA 4.0 02/15 Specimen Type: SERUM No comment entered. Ordering Provider: AARON CARD Report Released Date/Time: Feb 12, 2024 04:13 PM Reporting Lab: [facility] [place] [facility] [address] [facility] [address] Performing Lab: [facility] [place] [facility] [address] [facility] [address] [place] LIPID PANEL FASTING CHOLESTEROL IN HDL [MASS/VOLUM E] IN SERUM OR PLASMA 46 mg/dL 40 - 60 02/15 Specimen Type: SERUM No comment entered. Ordering Provider: AARON CARD Report Released Date/Time: Feb 12, 2024 04:13 PM Reporting Lab: [facility] [place] [facility] [address] [facility] [address] Performing Lab: [facility] [place] [address] [address] [place] LIVER FUNCTION PROTEIN [MASS/VOLUM E] IN SERUM OR PLASMA 7.1 g/dL 6.0 - 8.3 02/15 Specimen Type: SERUM No comment entered. Ordering Provider: AARON CARD Report Released Date/Time: Feb 12, 2024 04:13 PM Reporting Lab: [facility] [place] [address] [address] Performing Lab: [facility] [place] [address] [address] [place] LIVER FUNCTION ALBUMIN [MASS/VOLUM E] IN SERUM OR PLASMA 4.0 g/dL 3.5 - 5.0 02/15 Specimen Type: SERUM No comment entered. Ordering Provider: AARON CARD Report Released Date/Time: Feb 12, 2024 04:13 PM Reporting Lab: [facility] [place] [facility] [address] [facility] [address] Performing Lab: [facility] [place] [address] [address] [place] LIVER FUNCTION ALKALINE PHOSPHATASE [ENZYMATIC ACTIVITY/VO LUME] IN SERUM OR PLASMA 39 U/L 40 - 150 02/15 L Specimen Type: SERUM No comment entered. Ordering Provider: AARON CARD Report Released Date/Time: Feb 12, 2024 04:13 PM Reporting Lab: [facility] [place] [facility] [address] [facility] [address] Performing Lab: [facility] [address] [address] [place] LIVER FUNCTION ASPARTATE AMINOTRANSF ERASE [ENZYMATIC ACTIVITY/VO LUME] IN SERUM OR PLASMA 24 U/L 5 - 34 02/15 Specimen Type: SERUM No comment entered. Ordering Provider: AARON CARD Report Released Date/Time: Feb 12, 2024 04:13 PM Reporting Lab: [facility] [address] [address] Performing Lab: [facility] [address] [place] LIVER FUNCTION ALANINE AMINOTRANSF ERASE [ENZYMATIC ACTIVITY/VO LUME] IN SERUM OR PLASMA 23 U/L 02/15 Specimen Type: SERUM No comment entered. Ordering Provider: AARON CARD Report Released Date/Time: Feb 12, 2024 04:13 PM Reporting Lab: [facility] [place] [address] [address] Performing Lab: [facility] [place] [address] [address] [place] LIVER FUNCTION BILIRUBIN.T OTAL [MASS/VOLUM E] IN SERUM OR PLASMA 1.4 mg/dL 0.2 - 1.2 02/15 H Specimen Type: SERUM No comment entered. Ordering Provider: AARON CARD Report Released Date/Time: Feb 12, 2024 04:13 PM Reporting Lab: [facility] [place] [address] [address] Performing Lab: [facility] [address] [address] [place] LIVER FUNCTION BILIRUBIN.D IRECT [MASS/VOLUM E] IN SERUM OR PLASMA 0.4 mg/dL 0 - 0.5 02/15 Specimen Type: SERUM No comment entered. Ordering Provider: AARON CARD Report Released Date/Time: Feb 12, 2024 04:13 PM Reporting Lab: [facility] [address] [facility] [address] Performing Lab: [facility] [address] [facility] [address] [place] MICROALBU MIN CREATININ E RATIO PANEL MICROALBUMI N/CREATININ E [MASS RATIO] IN URINE 49.2 mg/g 0 - 29.9 02/15 H Specimen Type: URINE No comment entered. Ordering Provider: AARON CARD Report Released Date/Time: Feb 12, 2024 04:13 PM Reporting [facility] [address] [address] Performing [facility]: [facility] [address] [place] MICROALBU MIN CREATININ E RATIO PANEL MICROALBUMI N [MASS/VOLUM E] IN URINE 2.7 mg/dL 02/15 Specimen Type: URINE No comment entered. Ordering Provider: AARON CARD Report Released Date/Time: Feb 12, 2024 04:13 PM Reporting Lab: [facility] [address] [address] Performing Lab: [facility] [address] [place] MICROALBU MIN CREATININ E RATIO PANEL CREATININE [MASS/VOLUM E] IN URINE 54.91 mg/dL 02/15 Specimen Type: URINE No comment entered. Ordering Provider: AARON CARD Report Released Date/Time: Feb 12, 2024 04:13 PM Reporting Lab: [facility] [address] Performing Lab: [facility] [address] [place] TSH THYROTROPIN [UNITS/VOLU ME] IN SERUM OR PLASMA 1.05 u[IU]/ mL 0.35 - 5.00 02/15 Specimen Type: SERUM No comment entered. Ordering Provider: AARON CARD Report Released Date/Time: Feb 12, 2024 04:13 PM Reporting Lab: [facility] [address] [address] Performing Lab: [facility] [address] [place] BASIC METABOLIC PANEL (fasting) UREA NITROGEN [MASS/VOLUM E] IN SERUM OR PLASMA 18 mg/dL 7 - 25 08/20 Specimen Type: SERUM No comment entered. Ordering Provider: AARON CARD Report Released Date/Time: Aug 10, 2023 01:40 PM Reporting [facility] [address] [address] Performing Lab: [facility] [address] [address] [place] BASIC METABOLIC PANEL (fasting) GLUCOSE [MASS/VOLUM E] IN SERUM OR PLASMA 117 mg/dL 65 - 100 08/20 H Specimen Type: SERUM No comment entered. Ordering Provider: AARON CARD Report Released Date/Time: Aug 10, 2023 01:40 PM Reporting Lab: [facility] [address] [address] Performing Lab: [facility] [address] [address] [place] BASIC METABOLIC PANEL (fasting) SODIUM [MOLES/VOLU ME] IN SERUM OR PLASMA 138 mmol/L 135 - 145 08/20 Specimen Type: SERUM No comment entered. Ordering Provider: AARON CARD Report Released Date/Time: Aug 10, 2023 01:40 PM Reporting Lab: [facility] [address] [address] Performing Lab: [facility] [address] [place] BASIC METABOLIC PANEL (fasting) POTASSIUM [MOLES/VOLU ME] IN SERUM OR PLASMA 4.3 mmol/L 3.5 - 5.0 08/20 Specimen Type: SERUM No comment entered. Ordering Provider: AARON CARD Report Released Date/Time: Aug 10, 2023 01:40 PM Reporting Lab: [facility] [address] [facility] [address] Performing Lab: [facility] [address] [address] [place] BASIC METABOLIC PANEL (fasting) CHLORIDE [MOLES/VOLU ME] IN SERUM OR PLASMA 103 mmol/L 100 - 110 08/20 Specimen Type: SERUM No comment entered. Ordering Provider: AARON CARD Report Released Date/Time: Aug 10, 2023 01:40 PM Reporting Lab: [facility] [address] [address] Performing Lab: [facility] [address] [address] [place] BASIC METABOLIC PANEL (fasting) CARBON DIOXIDE, TOTAL [MOLES/VOLU ME] IN SERUM OR PLASMA 24 meq/L 20 - 30 08/20 Specimen Type: SERUM No comment entered. Ordering Provider: AARON CARD Report Released Date/Time: Aug 10, 2023 01:40 PM Reporting Lab: [facility] [address] [address] Performing Lab: [facility] [address] [address] [place] [employer] [place] BASIC METABOLIC PANEL (fasting) CREATININE [MASS/VOLUM E] IN SERUM OR PLASMA 1.04 mg/dL 0.50 - 1.40 08/20 Specimen Type: SERUM No comment entered. Ordering Provider: AARON CARD Report Released Date/Time: Aug 10, 2023 01:40 PM Reporting Lab: [facility] [address] [address] Performing Lab: [facility] [address] [address] [place] [employer] [place] BASIC METABOLIC PANEL (fasting) GLOMERULAR FILTRATION RATE/1.73 SQ M.PREDICTED [VOLUME RATE/AREA] IN SERUM, PLASMA OR BLOOD BY CREATININE- BASED FORMULA (CKD-EPI 2020) 75 mL/min 60 08/20 Specimen Type: SERUM No comment entered. Ordering Provider: AARON CARD Report Released Date/Time: Aug 10, 2023 01:40 PM Reporting Lab: [address] [address] Performing Lab: [address] [address] [place] LIPID PANEL FASTING CHOLESTEROL [MASS/VOLUM E] IN SERUM OR PLASMA 154 mg/dL 08/20 Specimen Type: SERUM No comment entered. Ordering Provider: AARON CARD Report Released Date/Time: Aug 10, 2023 01:40 PM Reporting Lab: [address] [address] Performing Lab: [address] [address] [place] LIPID PANEL FASTING TRIGLYCERID E [MASS/VOLUM E] IN SERUM OR PLASMA 239 mg/dL 0 - 150 08/20 H Specimen Type: SERUM No comment entered. Ordering Provider: AARON CARD Report Released Date/Time: Aug 10, 2023 01:40 PM Reporting Lab: [address] [address] Performing Lab: [address] [address] [place] LIPID PANEL FASTING CHOLESTEROL IN LDL [MASS/VOLUM E] IN SERUM OR PLASMA BY CALCULATION 63 mg/dL 0 - 129 08/20 Specimen Type: SERUM No comment entered. Ordering Provider: AARON CARD Report Released Date/Time: Aug 10, 2023 01:40 PM Reporting Lab: [address] [address] Performing Lab: [address] [address] [place] LIPID PANEL FASTING CHOLESTEROL .TOTAL/CHOL ESTEROL IN HDL [MASS RATIO] IN SERUM OR PLASMA 3.6 08/20 Specimen Type: SERUM No comment entered. Ordering Provider: AARON CARD Report Released Date/Time: Aug 10, 2023 01:40 PM Reporting Lab: [address] [address] Performing Lab: [address] [address] [place] LIPID PANEL FASTING CHOLESTEROL IN HDL [MASS/VOLUM E] IN SERUM OR PLASMA 43 mg/dL 40 - 60 08/20 Specimen Type: SERUM No comment entered. Ordering Provider: AARON CARD Report Released Date/Time: Aug 10, 2023 01:40 PM Reporting Lab: [address] [address] Performing Lab: [address] [address] [place] LIVER FUNCTION PROTEIN [MASS/VOLUM E] IN SERUM OR PLASMA 7.1 g/dL 6.0 - 8.3 08/20 Specimen Type: SERUM No comment entered. Ordering Provider: AARON CARD Report Released Date/Time: Aug 10, 2023 01:40 PM Reporting Lab: [address] [address] Performing Lab: [address] [address] [place] LIVER FUNCTION ALBUMIN [MASS/VOLUM E] IN SERUM OR PLASMA 4.0 g/dL 3.5 - 5.0 08/20 Specimen Type: SERUM No comment entered. Ordering Provider: AARON CARD Report Released Date/Time: Aug 10, 2023 01:40 PM Reporting Lab: [address] [address] Performing Lab: [address] [address] [place] LIVER FUNCTION ALKALINE PHOSPHATASE [ENZYMATIC ACTIVITY/VO LUME] IN SERUM OR PLASMA 49 U/L 40 - 150 08/20 Specimen Type: SERUM No comment entered. Ordering Provider: AARON CARD Report Released Date/Time: Aug 10, 2023 01:40 PM Reporting Lab: [facility] [place] [address] [address] Performing Lab: [facility] [place] [address] [address] [place] LIVER FUNCTION ASPARTATE AMINOTRANSF ERASE [ENZYMATIC ACTIVITY/VO LUME] IN SERUM OR PLASMA 23 U/L 5 - 34 08/20 Specimen Type: SERUM No comment entered. Ordering Provider: AARON CARD Report Released Date/Time: Aug 10, 2023 01:40 PM Reporting Lab: [facility] [place] [address] [address] Performing Lab: [facility] [place] [address] [address] [place] LIVER FUNCTION ALANINE AMINOTRANSF ERASE [ENZYMATIC ACTIVITY/VO LUME] IN SERUM OR PLASMA 24 U/L 08/20 Specimen Type: SERUM No comment entered. Ordering Provider: AARON CARD Report Released Date/Time: Aug 10, 2023 01:40 PM Reporting Lab: [facility] [place] [address] [address] Performing Lab: [facility] [place] [address] [address] [place] LIVER FUNCTION BILIRUBIN.T OTAL [MASS/VOLUM E] IN SERUM OR PLASMA 1.3 mg/dL 0.2 - 1.2 08/20 H Specimen Type: SERUM No comment entered. Ordering Provider: AARON CARD Report Released Date/Time: Aug 10, 2023 01:40 PM Reporting Lab: [facility] [place] [address] [address] Performing Lab: [facility] [place] [address] [address] [place] LIVER FUNCTION BILIRUBIN.D IRECT [MASS/VOLUM E] IN SERUM OR PLASMA 0.4 mg/dL 0 - 0.5 08/20 Specimen Type: SERUM No comment entered. Ordering Provider: AARON CARD Report Released Date/Time: Aug 10, 2023 01:40 PM Reporting Lab: [facility] [place] [facility] [address] [facility] [address] Performing Lab: [facility] [place] [facility] [address] [facility] [address] [facility] Vital Signs Combined list of inpatient and outpatient Vital Signs from Department of Defense and Veterans Affairs, ranging from 12 months to all on record, depending upon the facility. Vital Sign Value Date Comments Source SYSTOLIC BLOOD PRESSURE 136 02/24/2024 09:33:43 [facility] DIASTOLIC BLOOD PRESSURE 86 02/24/2024 09:33:43 [facility] PULSE OXIMETRY 92 02/24/2024 09:33:43 [place] PULSE 59 02/24/2024 09:33:43 [facility] SYSTOLIC BLOOD PRESSURE 150 08/28/2023 13:09:58 [facility] DIASTOLIC BLOOD PRESSURE 87 08/28/2023 13:09:58 [facility] PULSE OXIMETRY 97 08/28/2023 13:09:58 [place] [...] ADM Date DC Date Status Disposition Source [facility] [place] [facility] Outpatient Encounter [id number] JULEE JASMINE 12/30 [place] [facility] [place] [facility] OFFICE O/P EST MOD 30-39 MIN [id number] Diagnos is: ICD-10- CM 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
STELEA,CAR MEN F 02/25 [facility] [place] [facility] [place] [facility] Outpatient Encounter [id number] 03/11 [place] [facility] [place] [place] [facility] [place] [facility] Outpatient Encounter [id number] SHELIA REYES 03/12 [facility] [place] [facility] [place] OFF/OP EST MAY X REQ PHY/QHP [id number] Diagnos is: ICD-10- CM I10 Essenti al (primar y) hyperte nsion<b r/> SHELIA REYES 03/25 [place] [facility] Encounter [id number] 03/30 [facility] [place] [place] Encounter [id number] 08/19 [facility] [place] [facility] [place] OFFICE O/P EST MOD 30 MIN [id number] Diagnos is: ICD-10- CM E78.5 Hyperli pidemia , unspeci fied
STELEA,CAR MEN F 08/27 [place] [facility] En[facility] [id number] 10/14 [facility] [place] En[facility] [id number] 11/19 [facility] [place] [facility] [place] En[facility] [id number] 02/07 [facility] [place] [facility] [place] OFFICE O/P EST MOD 30 MIN [id number] Diagnos is: ICD-10- CM E78.5 Hyperli pidemia , unspeci fied
STELEA,CAR MEN F 02/23 [place] [facility] Encounter [id number] 04/28 [facility] [place] [facility] Social History Combined list of available smoking, tobacco, and other social history from Department of Defense and Veterans Affairs facilities. Social History Type Response Date Comment Sourc e Tobacco smoking status NHIS VA-TOBACCO NEVER USED 02/24/2024 [facility] D History of tobacco use VA-TOBACCO NEVER USED 02/25/2023 [facility] D History of tobacco use VA-TOBACCO NEVER USED 02/25/2022 [facility] D History of tobacco use MO-TOBACCO NEVER USED 10/30/2020 [facility] [place] [facility] History of tobacco use MO-TOBACCO NEVER USED 01/28/2018 [facility] History of tobacco use LIFETIME NON-TOBACCO USER 09/14/2017 [facility] History of tobacco use LIFETIME NON-TOBACCO USER 05/07/2016 [facility] History of tobacco use QUIT TOBACCO USE > 7 YEARS AGO 04/04/2015 [facility] History of tobacco use LIFETIME NON-TOBACCO USER 01/03/2011 [facility] Plan of Care List of future care activities from Department of Veterans Affairs facilities. Additional future care activities may be listed in the Assessment and Plan section. Date/Time Care Activity Care Activity Detail Facili ty 09/20/2024 AMBULATORY - MEDICINE AMBULATORY - MEDICI [place] [facility] [place] [facility]
--- OUTSIDE RECORDS SUMMARY | 2024-04-28 18:50 | XMS_ITS | Encounter Summary ---
Author Name [facility] [place] [facility] [place] Address [address] [place] [id number] Care Team Providers Care Rn Imcu Name Role Phone CARLOS MARYELLEN Primary Care [...] Name Patient's Relationship to Policy Gaytan [facility] Mar 11, 2015 [id number] JEZ GARCIA PATIENT MEDICARE (WNR) MEDICARE (M) PART A Mar 11, 2015 PART A [id number] [phone] JEZ GARCIA PATIENT MEDICARE (WNR) MEDICARE (M) PART B Mar 11, 2015 PART B [id number] JEZ GARCIA PATIENT MEDICARE (WNR) MEDICARE (M) PART A Mar 11, 2015 PART A [id number] [phone] JEZ GARCIA PATIENT MEDICARE (WNR) MEDICARE (M) PART B Mar 11, 2015 PART B [id number] [phone] JEZ GARCIA PATIENT Selected Encounter This section includes the information on record at OR for the Encounter. Date/Time Encounter Type Encounter Description Reason Pro vider Source Apr 28, 2024 11:45 AM Outpatient Encounter TELEPHONE TRIAGE IHE Encounter Template Text not used by OR Plan of Treatment: Future Appointments (+ 6 months) and Future Tests (+/- 45 days) The Plan of Treatment section includes future care activities for the patient from all OR treatmentfacilities. This section includes future appointments and future orders which are active, pending or scheduled. Future Appointments This section includes appointments that were scheduled to occur 6 months from the date of the Encounter, up to a maximum of 20 appointments. The data comes from all OR treatment facilities. Appointment Date/Time Appointment Type Appointme nt Facility Name September 20, 2024 03:00 PM AMBULATORY - MEDICINE [facility] [place] [facility] Social History: Smoking Status (Most [...] 30, 2020 10:49 AM VA-TOBACCO NEVER USED [place] [facility] [facility] Encounter Notes: All associated encounter notes This [...] Patient Name: RC GARCIA Patient Primary [address]: [address] [place] [address] Patient Primary Phone: [phone] Patient : 1950 Patient Age: 74 Current Location: [place] Call Back Number: Caller/Recipient Relation to Patient: [...] approval or authorization for payment by the OR or its staff. Patient advised to report a community ED visit to the [facility] Office of Community Care at within 72 hours. Advised of [place] Act UC Benefits Other course(s) of action Generated msg to PACT/Provider Provided guidance for worsening symptoms: *Caller/Patient* advised to call facilities OR Clinical Contact Center or seek immediate medical attention for new or worsening symptoms Nurse Summary Nurse Summary: . calls reporting lightheadedness x 4 hrs. Advised UC within 8 hrs. Provided in network UC options. Advised of [facility] Triage 24.7 availability. verbalizes understanding and agrees with plan. declines VCV and F2F with PCP, stating he prefers to go to UC now. Clinical Contact Center Codes Clinic/Location: V1 [facility] [facility] RN Decision Support System Output: Triage Complete Triage Date: 04/28/2024, 11:40 AM Triage Note: Decision Support Tool Used: [facility] Phone Triage Martha, 28 Apr 2024 16:36:[address] [facility] Demographics 74 y/o Male Results CC: Lightheadedness Software suggested: Within 3 Days Software suggested follow-up location: Clinic, consider [facility] care Values and Measures Duration of CC: [...] TIA IMPORTANT: This note was created by [facility] Clinical Contact Center staff. Please do not alert the staff member by adding them as a signer for future communications. Alerts are not monitored by this user. /ct/ DONG APPIAH [address] [facility] marshmallow maker Signed: 04/28/2024 11:45 Receipt Acknowledged By: 04/28/2024 14:42 /es/ JAZMYNE GERARDN RN- REGISTERED NURSE 04/28/2024 14:54 /ct/ JASPREET COX LPN Licensed Practical Nurse [facility]
[2024-04-28 19:47] VITALS: BP 141/84; PULSE 67; RESP 14; TEMP 36.7; O2SAT 95
== END 2024-04-28 19:48 | disposition home or self-care (01) ==
PROVIDERS: Physician Assistant; Emergency Provider Emergency Medicine; PCP Internal Medicine
DX: H81.10 Benign paroxysmal vertigo, unspecified ear (principal); I10 Essential (primary) hypertension; E11.9 Type 2 diabetes mellitus without complications; E78.5 Hyperlipidemia, unspecified; R29.700 NIHSS score 0
CPT/HCPCS: 36415; 70450; 80048; 80076; 81001; 83735; 84484; 85025; 87086; 93005; 99284

== ENCOUNTER → 2024-04-28 14:55 | Outpatient (BNV) | payer OTHER, SELFPAY | PROVIDERS: Emergency Provider Emergency Medicine; PCP Internal Medicine; Visit Provider Internal Medicine | DX: R07.9 Chest pain, unspecified (principal) | CPT/HCPCS: 93010 ==